=== PATIENT | male | born 1965 | race Caucasian/White ===

== ENCOUNTER 2021-02-15 10:57 | Inpatient (IN) | payer BC, SELFPAY ==
[2021-02-15] VITALS (24 sets, daily range): BP systolic 118–151; BP diastolic 84–98; PULSE 72–95; RESP 23–40; TEMP 36.4–37.4; O2SAT 85–97; BMI 41.8
--- NOTE | 2021-02-15 | ECHO_ITS ---
Patient Info Name: Henrique Meyers Age: 55 years : 1965 Gender: Male Ht: 69 in Wt: 270 lbs BSA: 2.50 m2 HR: 88 bpm BP: 133 / 93 mmHg Technical Quality: Good Exam Date: 02/15/2021 3:02 PM Exam Location: [facility] Patient Status: Inpatient Admit Date: 02/15/2021 Staff Ordering Physician: Aman Morelos MD Graduate Internship: Alfa Bray RDCS, RT Attending Provider: Alec Peña MD Exam Type: CA echo doppler color flow Study Info Indications I50.9 - Heart failure, unspecified Complete two-dimensional, color flow and Doppler transthoracic echocardiogram is performed. Strain analysis performed. Summary 1. Complete two-dimensional, color flow and Doppler transthoracic echocardiogram is performed. 2. Left ventricular chamber dimension is normal. 3. Left ventricular systolic function is normal, estimated at 60-65%. 4. There is mildly increased left ventricular wall thickness. 5. The left ventricular diastolic function is grade I diastolic dysfunction. 6. E/e' 6 is not elevated. 7. Global longitudinal strain is abnormal at -14.6%. 8. There is trace mitral valve regurgitation. Left Ventricle E/e' 6 is not elevated. Global longitudinal strain is abnormal at -14.6%. Left ventricular chamber dimension is normal. Left ventricular systolic function is normal, estimated at 60-65%. There is mildly increased left ventricular wall thickness. The left ventricular diastolic function is grade I diastolic dysfunction. Right Ventricle Right ventricular systolic function is normal with normal TAPSE 2.4 cm.. Right ventricular chamber dimension is normal. Left Atria Left atrial chamber dimension is normal. Right Atria Right atrial chamber dimension is normal. Aortic Valve The aortic valve is trileaflet. There is no aortic valve stenosis. There is no aortic valve regurgitation. Pulmonic Valve There is no pulmonic regurgitation. Mitral Valve There is no mitral valve stenosis. There is trace mitral valve regurgitation. Tricuspid Valve There is no tricuspid valve regurgitation. Pericardium/Pleural There is no pericardial effusion. Inferior Vena Cava Normal inferior vena cava with >50% collapse upon inspiration consistent with normal right atrial pressure, 5 mmHg. Aorta The aortic root size at the sinus of Valsalva is normal. Left Ventricular Outflow Tract Name Value Normal LVOT 2D LVOT Diameter 2.2 cm LVOT Doppler LVOT Peak Velocity 108 cm/s LVOT Peak Gradient 5 mmHg LVOT Mean Gradient 3 mmHg LVOT VTI 21 cm LVOT VTI/AV VTI Ratio 0.7 LVOT Stroke Volume 79 ml LVOT CO 6.4 l/min LVOT CI 2.6 l/min/m2 Pulmonic Valve Name Value Normal PV Doppler -------
--- NOTE | ~2021-02-15 | XR_ITS ---
EXAMINATION: XR chest 1V portable DATE: 02/20/2021 05:37 INDICATION: Respiratory failure TECHNIQUE: frontal view of the chest was obtained. COMPARISON: Chest radiograph dated 02/19/2021 FINDINGS: Slight increase in the patchy bilateral airspace opacities throughout both lungs relatively sparing t he apices. No pneumothorax or definitive pleural effusion. Heart size is normal. IMPRESSION: 1. Slight progression in diffuse patchy bilateral lung disease which could represent pneumonia and/or pulmonary edema. Reviewed, dictated and finalized at location A. IMPRESSION: 1. Slight progression in diffuse patchy bilateral lung disease which could repr esent pneumonia and/or pulmonary edema.
--- NOTE | ~2021-02-15 | XR_ITS ---
. EXAMINATION: XR chest 1V portable EXAM DATE: 02/17/2021 05:58 INDICATION: Resp Failure TECHNIQUE: Portable AP frontal chest x-ray was obtained. Comparison is made to prior examination from 02/15, 02/16/2021. FINDINGS: Diffuse bilateral pneumonia and/or edema, either stable or with mild progression. No pneumo thorax or pleural effusion. The cardiomediastinal silhouette is prominent but magnified on this AP te chnique. There are no osseous abnormalities identified. IMPRESSION: 1. Diffuse bilateral pneumonia or edema, stable or mild progression. Reviewed, dictated and finalized at location A.
--- NOTE | ~2021-02-15 | XR_ITS ---
EXAMINATION: XR chest 1V portable EXAM DATE: 02/16/2021 05:25 INDICATION: Respiratory failure. TECHNIQUE: Portable AP frontal chest x-ray was obtained. Comparison is made to prior examination from 02/15/2021. FINDINGS: There is diffuse groundglass density airspace disease, recommend considering possibility of COVID pneumonia given community prevalence and normal heart size. Edema or other infectious process also possible. No pneumothorax or pleural effusion. Cardiomediastinal silhouette is normal. There are no osseous abnormalities identified. Compared to yesterday, either stable or mild progression in the airspace disease. IMPRESSION: 1. Diffuse acute airspace disease, most likely infection. Reviewed, dictated and finalized at location A.
--- NOTE | ~2021-02-15 | XR_ITS ---
EXAMINATION: XR chest 1V portable EXAM DATE: 02/19/2021 05:49 INDICATION: Respiratory failure. TECHNIQUE: Portable AP frontal chest x-ray was obtained. Comparison is made to prior examination from 02/17/2021, 02/18. FINDINGS: Diffuse bilateral pneumonia and/or edema. No pneumothorax or pleural effusion. Cardiomedias tinal silhouette is normal. There are no osseous abnormalities identified. Accounting for differences in technique, there is no significant interval . IMPRESSION: Diffuse bilateral pneumonia or edema. Reviewed, dictated and finalized at location A.
--- NOTE | ~2021-02-15 | XR_ITS ---
EXAMINATION: XR chest 1V portable EXAM DATE: 02/15/2021 11:36 INDICATION: Shortness of breath. Symptoms 2 days. TECHNIQUE: Portable AP frontal chest x-ray was obtained. There is no prior study for comparison. FINDINGS: There is diffuse groundglass density airspace disease, recommend considering possibility of COVID pneumonia given community prevalence. No pneumothorax or pleural effusion. Cardiomediastinal s ilhouette is normal. There are no osseous abnormalities identified. IMPRESSION: 1. Diffuse acute airspace disease, most likely infection. Consider COVID. Reviewed, dictated and finalized at location A.
--- NOTE | ~2021-02-15 | XR_ITS ---
XR chest 1V portable DATE: 02/24/2021 05:37 INDICATION: Shortness of breath. Pneumonia. TECHNIQUE: Portable AP chest on 02/24/2021 at 0534 hours COMPARISON: 02/20/2021 portable AP chest at 0521 hours FINDINGS: There are extensive patchy consolidating infiltrates scattered throughout most of both lung conteh, with little interval change since 02/20/2021. Normal heart size. No pneumothorax. IMPRESSION: Persistent severe bilateral patchy consolidating infiltrates, with little interval change since 02/20/2021 Reviewed, dictated and finalized at location A.
--- NOTE | ~2021-02-15 | XR_ITS ---
EXAMINATION: XR chest 1V portable EXAM DATE: 02/18/2021 05:25 INDICATION: Respiratory failure. TECHNIQUE: Portable AP frontal chest x-ray was obtained. Comparison is made to prior examination from 02/17/2021. FINDINGS: Diffuse bilateral pneumonia and/or edema. No pneumothorax or pleural effusion. Cardiomedias tinal silhouette is normal. There are no osseous abnormalities identified. Accounting for differences in technique, there is no significant interval change in airspace disease compared to yesterday. IMPRESSION: Diffuse bilateral pneumonia or edema. Reviewed, dictated and finalized at location A.
--- NOTE | 2021-02-15 11:12 | ECG_ITS ---
Measurements Intervals [place] Rate: 96 P: 9 DC: 145 QRS: -34 QRSD: 102 T: -4 QT: 375 QTc: 474 Interpretive Statements SINUS RHYTHM LEFT AXIS DEVIATION VOLTAGE CRITERIA FOR LVH POOR R WAVE PROGRESSION, ANTERIOR LEADS MINIMAL Q WAVES- HIGH LATERAL LEADS BORDERLINE T WAVE ABNORMALITY- ANT/INF LEADS BASELINE ARTIFACT- II, III, AVR, AVF, V3-V6 BORDERLINE ECG Electronically Signed On 02-15-2021 11:20:39 CDT by Elfego Hays D.O.
[2021-02-15 11:18] LABS: Alveolar/Arterial O2 Gradient 635.3 mmHg; Base Excess ABG -3.7 mEq/l (+/-2.0); Fractional Inspired Oxygen 100 %; HCO3 ABG 18.6 mEq/l (22.0-26.0); Oxygen Saturation ABG 87.6 % (95.0-100.0); Oxyhemoglobin 84.2 % THb (90.0-100.0); PCO2 ABG 27.7 mmHg (35.0-45.0); Total Hemoglobin 16.1 g/dL (12.0-18.0); pH ABG 7.446 (7.350-7.450)
[2021-02-15 11:19] LABS: Device NON-REBREATHER MASK; Modified Allen's Test Pass; Site Drawn RIGHT RADIAL
[2021-02-15 11:25] LABS: Basophils Absolute Auto 0.1 K/mm3 (0.0-0.1); Basophils Percent Auto 0.7 % (0.2-1.2); Eosinophils Percent Auto 0.3 % (0-4.4); Hematocrit 47.5 % (42.0-52.0); Hemoglobin 16.1 g/dL (14.0-18.0); Immature Granulocyte Absolute 0.25 K/mm3 (0.00-0.031); Immature Granulocyte Percent A 2.5 % (0-0.5); Lymphocytes Absolute Auto 1.37 K/mm3 (0.9-3.2); Lymphocytes Percent Auto 13.5 % (18.3-44.2); Mean Corpuscular HGB Conc 33.9 g/dl (32-36); Mean Corpuscular Volume 85.4 fl (80-100); Mean Platelet Volume 9.7 fl (7.4-10.4); Monocytes Absolute Auto 1.4 K/mm3 (0.1-0.6); Monocytes Percent Auto 14.1 % (2.6-8.5); Neutrophils Percent Auto 68.9 % (45.5-73.1); Nucleated Red Blood Cells Perc 0.2 % (0.0-0.2); Platelet Count Result 245 k/mm3 (150-375); Red Blood Count 5.56 M/mm3 (4.6-6.20); Red Cell Distribution Width 13.6 % (11.5-14.5); White Blood Count 10.2 K/mm3 (4.5-10.0)
--- NOTE | 2021-02-15 11:39 | ED.SOB ---
HPI - SOB/Dyspnea General Chief Complaint: Shortness of Breath/Dyspnea Stated Complaint: diff breathing Time Seen by Provider: 02/15/21 11:16 History of Present Illness HPI Narrative: Patient is a 55-year-old male who presents ER with shortness of breath. Was diagnosed with COVID-19 on 02/08/2021 but initially became symptomatic on 02/06/2021. Reports progressive shortness of breath and weakness since diagnosis. Continues to have fevers and chills. Reports mild nonproductive cough. No alleviating factors. Has not been on medications. Does endorse some mild chest pressure associated with his shortness of breath. Related Data Home Medications Medication Instructions Recorded Confirmed cetirizine-pseudoephedrine 1 tablet PO Q12H PRN 02/15/21 02/15/21 [Zyrtec-D] Allergies Allergy/AdvReac Type Severity Reaction Status Date / Time No Known Allergies Allergy Unknown Unverified 03/27/14 09:42 Review of Systems Review of Systems: All systems reviewed & are unremarkable except as noted in HPI and below Constitutional: Constitutional: Reports chills, Reports fatigue and Reports fever(s) ENT: Denies nasal congestion and Denies sore throat Cardiovascular: Cardiovascular: Reports chest pain, Denies rapid heart rate and Denies radiating jaw, neck or arm pain Respiratory: Respiratory: Reports cough, Reports dyspnea and Denies wheezing Gastrointestinal: Gastrointestinal: Denies abdominal pain, Denies nausea and Denies vomiting PMFSH Past Medical History Medical History Healthy adult male Surgical History Surgical History History of right knee surgery Family History Family History Other Carcinoma of colon Diabetes mellitus Family history of Alzheimer's disease Family history of arthritis Family history of coronary artery disease Family history of malignant neoplasm Hypertension Social History Social History Smoking status: Never smoker Alcohol intake: current Substance use: never Gender identity (if verbalized by the patient): Male Spiritual care concerns: No Exam Narrative: Exam Narrative: GENERAL: Well-appearing, well-nourished, and in no acute distress. HEAD: Normocephalic, atraumatic. ENT: Mucous membranes moist. CHEST: Clear to auscultation. Elevated respiratory rate on BiPAP. HEART: Regular rate and rhythm. Normal peripheral pulses. ABDOMEN: Soft, nontender, nondistended. EXTREMITIES: Normal range of motion. No edema. SKIN: Warm, dry, no rash. NEURO: Alert and oriented x3. Course Course Emergency Course: Patient is certainly quite ill given his profound hypoxia and necessity for BiPAP. After talking to hospitalist and amusement park worker patient be placed in the ICU. He will be started remdesivir as well as Decadron. Troponin elevated will be trended. Patient only reported tightness not having active chest pain here. Vital Signs Vital signs: Vital Signs Temperature 97.6 F 02/15/21 11:05 Pulse Rate 95 02/15/21 11:05 Respiratory Rate 39 H 02/15/21 11:05 Blood Pressure 149/98 H 02/15/21 11:05 Pulse Oximetry 86 L 02/15/21 11:05 Temperature 98.1 F 02/15/21 20:00 Pulse Rate 84 02/15/21 20:19 Respiratory Rate 33 H 02/15/21 20:10 Blood Pressure 151/95 H 02/15/21 20:00 Pulse Oximetry 94 02/15/21 20:10 MDM - SOB/Dyspnea Lab Data Result diagrams: 02/15/21 11:14 02/15/21 11:14 Labs: Lab Results 02/15/21 02/15/21 02/15/21 Range/Units 11:14 11:14 11:14 WBC 10.2 H (4.5-10.0) K/mm3 RBC 5.56 (4.6-6.20) M/mm3 Hgb 16.1 (14.0-18.0) g/dL Hct 47.5 (42.0-52.0) % MCV 85.4 (80-100) fl MCH 29.0 (26-34) pg MCHC 33.9 (32-36) g/dl RDW 13.6 (11.5-14.5) % Plt Count 245 (150-375) k/mm3 MPV
[2021-02-15 11:52] LABS: Anion Gap 12 mmol/L (8-16); Blood Urea Nitrogen 24 mg/dL (9-20); Calcium 8.1 mg/dL (8.4-10.2); Carbon Dioxide 24 mmol/L (22-30); Chloride 91 mmol/L (98-107); Estimated CRCL calculation 94 ml/min; Estimated Glomerular Filt Rate > 60; Glucose 149 mg/dL (75-110); Potassium 4.2 mmol/L (3.4-5.0); Sodium 127 mmol/L (137-145)
[2021-02-15] MEDS: DEXAMETHASONE SOD PHOS INJ 4 MG/ML VIAL 6 MG IV PUSH (11:53)
[2021-02-15 12:00] LABS: Lactic Acid Reflex 4.6 mmol/L (0.7-2.1)
[2021-02-15 12:20] LABS: Troponin I 0.038 ng/mL (0.000-0.034)
[2021-02-15 12:57] LABS: Alanine Aminotransferase 74 U/L (4-50)
--- NOTE | 2021-02-15 13:04 | WPDCNINT ---
Assessment and Plan Assessment and plan (1) Acute respiratory failure due to COVID-19: Code(s): U07.1 - COVID-19; J96.00 - Acute respiratory failure, unspecified whether with hypoxia or hypercapnia Status: Acute Assessment and Plan: Acute respiratory failure secondary to COVID-19 pneumonia. Rule out bacterial SARS-CoV-2 PCR positive almost 1 week ago. Patient now admitted with pneumonia respiratory failure. Chest x-ray shows Diffuse acute airspace disease, most likely infection. Consider COVID. Patient is in Airborne, Droplet and Contact Isolation Continue dexamethasone, remdesivir Currently on BiPAP at 80% FiO2. May need intubation Cautious IVF Empiric Rocephin and doxycycline antibiotics for empiric bacterial coverage Check and follow inflammatory periodically Check D-dimer level to guide dosage of DVT prophylaxis (2) Sepsis: Code(s): A41.9 - Sepsis, unspecified organism Status: Acute Assessment and Plan: Lactic acidosis likely secondary to sepsis versus hypoxia 30 ml/kg IV fluid bolus but will have to be cautious with IV fluids Empiric antibiotics as above Monitor lactic acid level Blood cultures (3) Elevated troponin: Code(s): R77.8 - Other specified abnormalities of plasma proteins Status: Acute Assessment and Plan: Minimally elevated troponin likely secondary to respiratory failure and distress EKG shows T-wave abnormality but no ST elevation Monitor Serial troponin Add aspirin Low-dose Beta-mika if blood pressure allows Check echocardiogram and BNP DVT prophylaxis -Lovenox subcu Stress ulcer prophylaxis -PPI Nutrition -NPO for now Code Status -I spoke to patient in detail and he requests to be full code Full Code. He is not has 2 children but they do not live in this area and are not close to him. He requested to contact his sister if he is unable to make his decisions for himself. Total Critical Care Time - 35 minutes Due to a high probability of clinically significant, life threatening deterioration, the patient required my highest level of preparedness to intervene emergently and I personally spent this critical care time directly and personally managing the patient. This critical care time included obtaining a history; examining the patient; pulse oximetry; ordering and review of studies; arranging urgent treatment with development of a management plan; evaluation of patient's response to treatment; frequent reassessment; and discussions with other providers. It was exclusive of separately billable procedures and treating other patients and teaching time. Please see Assessment and Plan section and the rest of the note for further information on patient assessment and treatment Church Worker Consult Note Consult date: 02/15/21 Time Seen: 12:30 HPI: Henrique Meyers is a 55 year old male with no significant past medical history who presented to ER with chief complaint of shortness of breath. He was diagnosed with COVID-19 on 02/08/2021 but initially became symptomatic on 02/06/2021. Patient reports that he felt that he had a sinus infection with nasal congestion and sore throat. He got himself tested on Monday and was found to be positive. He was told to quadrant in at home he lives by himself. Since then patient has been getting progressively more shortness of breath and weak since diagnosis. He also had fevers, body ache, rigors and chills. He felt weak and tired. He also continued to have cough which was mostly nonproductive. Symptoms continued to get worse until he presented to ER. He denies any change in sensation of taste or smell but he did report poor appetite and poor p.o. intake over last few days. He also reported diarrhea without any blood associated with that. No abdominal pain nausea or vomiting On arrival to ER patient was noticed to be severely hypoxic. He was placed on BiPAP with improvement in his respiratory distress. Reported to me
[2021-02-15 13:53] LABS: NT Pro B Type Natriuretic Pept 544 PG/ML (5-100)
--- NOTE | 2021-02-15 13:54 | ADMGEN ---
This patient, Henrique Meyers, was admitted to Intensive Care Unit-2. Patient/family oriented to hospital policies and general routines including ID bracelet, bed and alarms, visiting hours, pain management, procedures, bathroom and other care routines, personal items, smoking policy, room service/diet, and visiting hours. Information on how to activate the Rapid Response Team has been discussed. Patient/Family are encouraged to report perceived risks to care and to ask questions if they do not understand what they are told or what they should do.
[2021-02-15] MEDS: REMDESIVIR 200 MG/NS 250 ML 200 MG/250 ML BAG 250 MG IVPB (14:14)
[2021-02-15 14:23] LABS: Reflex Lactic Acid Yes or No Add Lactic
--- NOTE | 2021-02-15 14:53 | PM.IMHP ---
H&P: HPI History of Present Illness Date/Time: 02/15/21 14:53 Chief Complaint: Worsening shortness of breath Narrative: This is a 55-year-old male with no significant past medical history, obesity. Most of the history I have obtained from medical record this patient is currently on BiPAP therapy. He felt dry upper airway cold symptoms nasal congestion at the beginning of February he presented to outpatient office where he was tested for COVID 19, patient tested positive for it it has been roughly over a week and he has come to the emergency room due to worsening shortness of breath, fevers, chills, fatigue poor appetite he was found to have a low oxygen saturation and to be in respiratory distress requiring BiPAP. Preliminary workup was significant for a chest x-ray that shows diffuse infiltrates, mild elevation of lactic acidosis and mild elevation of troponin. Prior to this he has been in his usual state of health. [facility] Past Medical History Medical History Healthy adult male Surgical History Surgical History History of right knee surgery Family History Family History Other Carcinoma of colon Diabetes mellitus Family history of Alzheimer's disease Family history of arthritis Family history of coronary artery disease Family history of malignant neoplasm Hypertension Social History Social History Smoking status: Never smoker Alcohol intake: current Meds Home Medications and Allergies Home Medications Medication Instructions Recorded Confirmed Type cetirizine-pseudoephedrine 1 tablet PO Q12H PRN 02/15/21 02/15/21 History [Zyrtec-D] Allergies Allergy/AdvReac Type Severity Reaction Status Date / Time No Known Allergies Allergy Unknown Unverified 03/27/14 09:42 Vital Signs Vital Signs - 24 hr 02/15/21 11:05 02/15/21 11:07 02/15/21 11:15 Temperature 97.6 F Pulse Rate 95 90 Respiratory Rate 39 H Blood Pressure 149/98 H Pulse Oximetry 86 L 85 L 02/15/21 11:20 02/15/21 11:34 02/15/21 11:55 Temperature Pulse Rate 92 93 Respiratory Rate 27 H 34 H Blood Pressure Pulse Oximetry 97 96 96 02/15/21 12:00 02/15/21 12:01 02/15/21 12:15 Temperature Pulse Rate 92 91 91 Respiratory Rate 40 H 39 H 36 H Blood Pressure 118/89 Pulse Oximetry 96 95 95 02/15/21 12:16 02/15/21 12:30 02/15/21 12:31 Temperature Pulse Rate 90 91 93 Respiratory Rate 37 H 35 H 31 H Blood Pressure 127/87 129/89 Pulse Oximetry 95 95 94 02/15/21 12:45 02/15/21 12:46 02/15/21 13:40 Temperature Pulse Rate 92 90 Respiratory Rate 36 H 32 H 24 H Blood Pressure 133/93 H Pulse Oximetry 94 92 Exam Narrative: Exam Narrative: Patient is laying in bed BiPAP is on Const: General: comfortable, no acute distress, well developed, alert, awake and ill appearing Nutritional Appearance: overweight Orientation/consciousness: patient oriented x3 HENMT: Head: normal to inspection, normocephalic and atraumatic Ears: hearing grossly normal bilaterally Face and sinus: normal facial exam Eyes: General: appearance normal, both eyes and all related structures Pupils: Equal, round and reactive pupils present EOM: EOMs intact bilaterally Neck: Neck: full ROM, no lymphadenopathy and no JVD Thyroid: thyroid normal Lymphatic: no lymphadenopathy noted Resp: Effort & Inspection: other (On BiPAP support) Auscultation: diminished lung sounds Cardio: Jugular venous distension: no JVD Rate: regular rate Rhythm: regular rhythm Heart sounds: S1 normal heart sound present and S2 normal heart sound present GI: Inspection: Pannus present and obesity GI Palp: Yes Soft to palpation and Yes No hepatosplenomegaly present : General: Yes deferred Skin: Rashes: no rashes Wounds: no wounds N
[2021-02-15] MEDS: ASPIRIN 300 MG SUPPOSITORY RECTAL (15:48)
[2021-02-15 16:05] LABS: Lactic Acid 1.5 mmol/L (0.7-2.1)
[2021-02-15 16:12] LABS: Glucose Point of Care 134 (65-105)
[2021-02-15 16:29] LABS: Troponin I 0.254 ng/mL (0.000-0.034)
[2021-02-15 16:45] LABS: D Dimer > 20.00 ug/mL (<0.48)
[2021-02-15] MEDS: ENOXAPARIN 100 MG/ML SYRINGE SUB-Q (17:22)
[2021-02-15] MEDS: ENOXAPARIN 30 MG/0.3 ML SYRINGE SUB-Q (17:23)
[2021-02-15 18:51] LABS: Glucose Point of Care 134 (65-105)
[2021-02-15 20:06] LABS: Lactic Acid Reflex 1.5 mmol/L (0.7-2.1)
[2021-02-15] MEDS: METOPROLOL TARTRATE 12.5 MG TABLET PO (20:19)
[2021-02-15 20:23] LABS: Troponin I 0.272 ng/mL (0.000-0.034)
[2021-02-15 23:31] LABS: Glucose Point of Care 123 (65-105)
[2021-02-16] VITALS (26 sets, daily range): BP systolic 124–152; BP diastolic 83–99; PULSE 66–75; RESP 17–27; TEMP 36.2–36.8; O2SAT 89–96
[2021-02-16] MEDS: ENOXAPARIN 30 MG/0.3 ML SYRINGE SUB-Q ×2 (05:06→16:51)
[2021-02-16] MEDS: ENOXAPARIN 100 MG/ML SYRINGE SUB-Q ×2 (05:06→16:52)
[2021-02-16 05:26] LABS: Hematocrit 40.6 % (42.0-52.0); Hemoglobin 13.8 g/dL (14.0-18.0); Mean Corpuscular Hemoglobin 28.9 pg (26-34); Mean Corpuscular Volume 84.9 fl (80-100); Mean Platelet Volume 9.8 fl (7.4-10.4); Platelet Count Result 230 k/mm3 (150-375); Red Blood Count 4.78 M/mm3 (4.6-6.20); Red Cell Distribution Width 13.5 % (11.5-14.5); White Blood Count 7.5 K/mm3 (4.5-10.0)
[2021-02-16 05:47] LABS: Alanine Aminotransferase 66 U/L (4-50); Albumin Level 2.9 g/dL (3.5-5.1); Alkaline Phosphatase 64 U/L (38-126); Anion Gap 4 mmol/L (8-16); Aspartate Amino Transferase 73 U/L (17-59); Bilirubin,Total 0.6 mg/dL (0.2-1.3); Blood Urea Nitrogen 23 mg/dL (9-20); Calcium 7.3 mg/dL (8.4-10.2); Carbon Dioxide 27 mmol/L (22-30); Chloride 101 mmol/L (98-107); Estimated CRCL calculation 105 ml/min; Estimated Glomerular Filt Rate > 60; Glucose 125 mg/dL (75-110); Magnesium 2.7 mg/dL (1.6-2.3); Sodium 132 mmol/L (137-145)
[2021-02-16 05:59] LABS: CRP 15.6 mg/dL (<1.0)
[2021-02-16 06:09] LABS: Lactate Dehydrogenase 2025 U/L (313-618)
--- NOTE | 2021-02-16 07:27 | WPDINTPN ---
Progress Note: A&P Assessment and Plan (1) Acute respiratory failure due to COVID-19: Code(s): U07.1 - COVID-19; J96.00 - Acute respiratory failure, unspecified whether with hypoxia or hypercapnia Status: Acute Assessment and Plan: Acute respiratory failure secondary to COVID-19 pneumonia. Rule out bacterial SARS-CoV-2 PCR positive almost 1 week ago. Patient now admitted with pneumonia respiratory failure. Chest x-ray shows Diffuse acute airspace disease, most likely infection. Patient is in Airborne, Droplet and Contact Isolation Continue dexamethasone, remdesivir Currently on BiPAP at 60% FiO2. Will try patient on Airvo. Discussed with patient, if his condition worsens, he agrees with intubation and mechanical ventilation Cautious IVF Empiric Rocephin and doxycycline antibiotics for empiric bacterial coverage Inflammatory markers are elevated, continue trend periodically D-dimer significantly elevated, patient started on therapeutic Lovenox, trend D-dimer (2) Sepsis: Code(s): A41.9 - Sepsis, unspecified organism Status: Acute Assessment and Plan: Lactic acidosis likely secondary to sepsis versus hypoxia 30 ml/kg IV fluid bolus but will have to be cautious with IV fluids Empiric antibiotics as above Lactic acid normalized Blood cultures pending (3) Elevated troponin: Code(s): R77.8 - Other specified abnormalities of plasma proteins Status: Acute Assessment and Plan: Minimally elevated troponin likely secondary to respiratory failure and distress EKG shows T-wave abnormality but no ST elevation Troponins elevated but plateaued, could be related to respiratory distress and hypoxia, type 2 infarct Continue aspirin low-dose beta-mika -BNP was 544 Echocardiogram 02/15/2021: Normal LV dimension, LVSF is normal, EF 60-65%. Grade 1 diastolic dysfunction Additional Plan DVT prophylaxis -Lovenox subcu Stress ulcer prophylaxis -PPI Nutrition -NPO for now Code Status -patient requests to be full code Full Code. He is not has 2 children but they do not live in this area and are not close to him. He requested to contact his sister if he is unable to make his decisions for himself. Total Critical Care Time - 34 minutes Due to a high probability of clinically significant, life threatening deterioration, the patient required my highest level of preparedness to intervene emergently and I personally spent this critical care time directly and personally managing the patient. This critical care time included obtaining a history; examining the patient; pulse oximetry; ordering and review of studies; arranging urgent treatment with development of a management plan; evaluation of patient's response to treatment; frequent reassessment; and discussions with other providers. It was exclusive of separately billable procedures and treating other patients and teaching time. Please see Assessment and Plan section and the rest of the note for further information on patient assessment and treatment Subjective Date/time seen: 02/16/21 07:27 Interval history: Reason for consult COVID-19 19 pneumonia, acute respiratory failure requiring BiPAP, elevated lactic acid which has resolved after IV fluids, hypoxia 02/16/2021: Patient seen and examined in the ICU this morning, remains on BiPAP 14/8, 60% FiO2. Patient is hemodynamically stable, urine output has been adequate. Lactic acid has normalized. Inflammatory markers are elevated, patient on full-dose Lovenox. Patient denies any shortness of breath at this time, denies any chest pain, abdominal pain, nausea vomiting. States he feels better Review of Systems Review of Systems: All systems reviewed & are unremarkable except as noted in HPI and below (HPI) Exam Narrative: Exam Narrative: General: Pt is alert awake and on BiPAP Lungs/Chest: Trachea central course BS B/L, bibasilar crackles, no wheezing, mild tachypnea but no respiratory
[2021-02-16] MEDS: DEXAMETHASONE SOD PHOS INJ 4 MG/ML VIAL 6 MG IV PUSH (08:03)
[2021-02-16] MEDS: ASPIRIN 325 MG TABLET PO (08:03)
[2021-02-16] MEDS: METOPROLOL TARTRATE 12.5 MG TABLET PO ×2 (08:03→20:37)
[2021-02-16] MEDS: PANTOPRAZOLE SODIUM IV 40 MG VIAL IV PUSH (09:28)
--- NOTE | 2021-02-16 09:31 | PM.CNCAR ---
Assessment and Plan Assessment and plan (1) Type 2 myocardial infarction: Code(s): I21.A1 - Myocardial infarction type 2 Status: Acute Assessment and Plan: 55-year-old male with no known prior cardiac history. Patient admitted to the hospital with COVID-19 pneumonia. Troponins are minimally elevated in the setting of COVID-19 infection and hypoxemia, likely type 2 [place]. Echocardiogram shows preserved LV systolic function. Continue current medical treatment and supportive care. No further cardiac testing is anticipated at this time unless otherwise indicated based on patient's clinical course. Continue to monitor on telemetry for any arrhythmias. Will follow on p.r.n. basis. (2) Pneumonia due to 2019-nCoV: Code(s): U07.1 - COVID-19; J12.82 - Pneumonia due to coronavirus disease 2019 Status: Acute Assessment and Plan: Management as per primary/ICU team (3) Acute respiratory failure due to COVID-19: Code(s): U07.1 - COVID-19; J96.00 - Acute respiratory failure, unspecified whether with hypoxia or hypercapnia Status: Acute Assessment and Plan: Management as per primary/ICU team History of Present Illness History of Present Illness Consult date/time: 02/16/21 09:31 Date of consult: 02/16/2021 Reason for consult: Requesting physician: HPI: 55-year-old male with no known prior cardiac history. Patient [facility] on 02/15/2021 with complaints of shortness of breath. He denies chest pain, palpitation, dizziness or syncope. No known prior cardiac history. He was apparently diagnosed with COVID-19 on 02/08/2021. Patient was found to be severely hypoxemic. Chest x-ray showed diffuse acute airspace disease consistent with COVID-19 pneumonia. He was initially on BiPAP, and is currently on high-flow oxygen. Patient has received steroids, remdesivir. Cardiology was consulted for mild troponin elevation. EKG on my personal evaluation showed sinus rhythm, leftward axis, poor R-wave progression. Troponins are minimally elevated with peak troponin level of 0.27. Echocardiogram showed preserved LV systolic function, EF 60-65%, grade 1 diastolic dysfunction dysfunction. Reason For Visit: covid pneumonia/hypoxia/hyponatremia Review of Systems Review of Systems: Narrative: General: Positive for fatigue Psychological: Negative for anxiety, depression Ophthalmic: negative for loss of vision ENT: Negative for epistaxis, headaches Allergy and immunology: Negative for hives, nasal congestion Hematologic and lymphatic: Negative for overt bleeding problems Endocrine: Negative for hot flashes, palpitations Respiratory: Positive for shortness of breath Cardiovascular: Negative for chest pain Gastrointestinal: Negative for abdominal pain Musculoskeletal: Negative for myalgia, joint pains Neurological: Negative for weakness Dermatological: Negative for rash, skin discoloration PMFSH Past Medical History Medical History Healthy adult male Surgical History Surgical History History of right knee surgery Family History Family History Other Carcinoma of colon Diabetes mellitus Family history of Alzheimer's disease Family history of arthritis Family history of coronary artery disease Family history of malignant neoplasm Hypertension Social History Social History Smoking status: Never smoker Alcohol intake: current Substance use: never Gender identity (if verbalized by the patient): Male Spiritual care concerns: No Meds Home Medications and Allergies Home Medications Medication Instructions Recorded Confirmed Type cetirizine-pseudoephedrine 1 tablet PO Q12H PRN 02/15/21 02/15/21 History [Zyrtec-D] Allergies Allergy/AdvRea
[2021-02-16] MEDS: BUDESONIDE RESPULE NEB 0.5 MG/2 ML AMP INHALATION ×2 (10:09→20:53)
[2021-02-16] MEDS: REMDESIVIR 100 MG/NS 250 ML 100 MG/250 ML BAG 250 MG IVPB (11:51)
[2021-02-16 12:03] LABS: Glucose Point of Care 145 (65-105)
--- NOTE | 2021-02-16 14:14 | PM.IMPN ---
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 Continue breathing treatments (2) Pneumonia due to 2019-nCoV: Code(s): U07.1 - COVID-19; J12.82 - Pneumonia due to coronavirus disease 2019 Status: Acute Assessment and Plan: On Rocephin and doxycycline Remdesivir and dexamethasone (3) Sepsis: Code(s): A41.9 - Sepsis, unspecified organism Status: Acute Assessment and Plan: Likely secondary to pneumonia Early goal-directed therapy ongoing (4) Type 2 myocardial infarction: Code(s): I21.A1 - Myocardial infarction type 2 Status: Acute Assessment and Plan: Appreciate cardiology note Supportive care Medical management Subjective Date/time seen: 14:14 I feel much better Review of Systems Review of Systems: Narrative: Patient had been diagnosed with COVID-19 presented to the emergency room due to shortness of breath he was found to be severely hypoxic placed on BiPAP and admitted to intensive care unit Constitutional: Comments: No rigors no chills no fevers Cardiovascular: Comments: No chest pain no PND no orthopnea Respiratory: Comments: Shortness of breath Gastrointestinal: Comments: No nausea no vomiting no diarrhea no constipation no abdominal pain Musculoskeletal: Comments: Muscle aches Integumentary/Breasts: Comments: No rashes Neurologic: Comments: No sensorimotor deficit Exam Narrative: Exam Narrative: Patient is sitting in bed high-flow nasal/Airvo on saturating at 92% on 50% FiO2 Const: General: comfortable, no acute distress, well developed, alert and awake Nutritional Appearance: average body habitus Orientation/consciousness: patient oriented x3 HENMT: Head: normal to inspection, normocephalic and atraumatic Ears: hearing grossly normal bilaterally Face and sinus: normal facial exam Eyes: General: appearance normal, both eyes and all related structures Pupils: Equal, round and reactive pupils present EOM: EOMs intact bilaterally Neck: Neck: full ROM, no lymphadenopathy and no JVD Thyroid: thyroid normal Lymphatic: no lymphadenopathy noted Resp: Effort & Inspection: normal respiratory effort and able to speak in complete sentences Auscultation: diminished lung sounds Cardio: Jugular venous distension: no JVD Rate: regular rate Rhythm: regular rhythm Heart sounds: S1 normal heart sound present and S2 normal heart sound present GI: GI Palp: Yes Soft to palpation and Yes No hepatosplenomegaly present : General: Yes deferred Skin: Rashes: no rashes Wounds: no wounds Neuro: General: patient oriented x3 and CN's II-XI intact bilaterally Cranial nerves: Yes CN's II-XII intact bilaterally and Yes Equal, round and reactive pupils present Cognition (Neuro): normal cognition Speech: normal speech Gait exam (Neuro): Normal gait present Motor exam (neuro): 5/5 motor strength present throughout Extrem: General: normal to inspection, full ROM, no joint enlargement and no pedal edema Objective Data Vital Signs Vital Signs: Vital Signs - 24 hr 02/15/21 16:00 02/15/21 16:26 02/15/21 18:00 Temperature Pulse Rate 87 94 87 Respiratory Rate 38 H 35 H 29 H Blood Pressure 145/95 H 146/98 H Pulse Oximetry 94 96 92 02/15/21 20:00 02/15/21 20:10 02/15/21 20:19 Temperature 98.1 F Pulse Rate 89 84 84 Respiratory Rate 33 H 33 H Blood Pressure 151/95 H Pulse Oximetry 94 94 02/15/21 22:00 02/15/21 23:57 02/16/21 00:00 Temperature 98.2 F Pulse Rate 73 72 71 Respiratory Rate 23 H 24 H 27 H Blood Pressure 131/84 129/89 Pulse Oximetry 97 95 94 02/16/21 02:00 02/16/21 04:00 02/16/21 04:43 Temperature Puls
[2021-02-16] MEDS: ALBUTEROL SULFATE NEB 2.5 MG/0.5 ML INH INHALATION ×2 (15:17→20:53)
[2021-02-16] MEDS: IPRATROPIUM BR 0.02% INH SOLN 0.5 MG/2.5 ML VIAL INHALATION ×2 (15:17→20:53)
[2021-02-16 16:49] LABS: Glucose Point of Care 147 (65-105)
[2021-02-17] VITALS (26 sets, daily range): BP systolic 114–159; BP diastolic 78–99; PULSE 54–81; RESP 17–30; TEMP 36.1–37.2; O2SAT 89–100
[2021-02-17] MEDS: IPRATROPIUM BR 0.02% INH SOLN 0.5 MG/2.5 ML VIAL INHALATION ×4 (02:14→20:09)
[2021-02-17] MEDS: ALBUTEROL SULFATE NEB 2.5 MG/0.5 ML INH INHALATION ×4 (02:15→20:08)
[2021-02-17] MEDS: ENOXAPARIN 30 MG/0.3 ML SYRINGE SUB-Q ×2 (04:28→18:05)
[2021-02-17] MEDS: ENOXAPARIN 100 MG/ML SYRINGE SUB-Q ×2 (04:28→18:05)
[2021-02-17 04:42] LABS: Hematocrit 41.1 % (42.0-52.0); Hemoglobin 13.8 g/dL (14.0-18.0); Mean Corpuscular HGB Conc 33.6 g/dl (32-36); Mean Corpuscular Hemoglobin 28.9 pg (26-34); Mean Platelet Volume 9.2 fl (7.4-10.4); Platelet Count Result 303 k/mm3 (150-375); Red Blood Count 4.78 M/mm3 (4.6-6.20); Red Cell Distribution Width 13.3 % (11.5-14.5); White Blood Count 11.8 K/mm3 (4.5-10.0)
[2021-02-17 04:57] LABS: Alanine Aminotransferase 73 U/L (4-50); Albumin Level 2.9 g/dL (3.5-5.1); Alkaline Phosphatase 58 U/L (38-126); Anion Gap 3 mmol/L (8-16); Aspartate Amino Transferase 73 U/L (17-59); Bilirubin,Total 0.5 mg/dL (0.2-1.3); Blood Urea Nitrogen 25 mg/dL (9-20); Calcium 7.2 mg/dL (8.4-10.2); Carbon Dioxide 30 mmol/L (22-30); Chloride 103 mmol/L (98-107); Estimated CRCL calculation 95 ml/min; Estimated Glomerular Filt Rate > 60; Glucose 110 mg/dL (75-110); Magnesium 2.8 mg/dL (1.6-2.3); Potassium 3.8 mmol/L (3.4-5.0); Sodium 136 mmol/L (137-145)
[2021-02-17 05:25] LABS: D Dimer 16.69 ug/mL (<0.48)
[2021-02-17] MEDS: DEXAMETHASONE SOD PHOS INJ 4 MG/ML VIAL 6 MG IV PUSH (07:46)
[2021-02-17] MEDS: METOPROLOL TARTRATE 12.5 MG TABLET PO ×2 (07:46→20:26)
[2021-02-17] MEDS: PANTOPRAZOLE SODIUM IV 40 MG VIAL IV PUSH (07:46)
[2021-02-17] MEDS: ASPIRIN 325 MG TABLET PO (07:46)
[2021-02-17 07:58] LABS: Glucose Point of Care 97 (65-105)
--- NOTE | 2021-02-17 08:05 | WPDINTPN ---
Progress Note: A&P Assessment and Plan (1) Acute respiratory failure due to COVID-19: Code(s): U07.1 - COVID-19; J96.00 - Acute respiratory failure, unspecified whether with hypoxia or hypercapnia Status: Acute Assessment and Plan: Acute respiratory failure secondary to COVID-19 pneumonia. Rule out bacterial SARS-CoV-2 PCR positive almost 1 week ago. Patient now admitted with pneumonia respiratory failure. Chest x-ray shows Diffuse acute airspace disease, most likely infection. Patient is in Airborne, Droplet and Contact Isolation Continue dexamethasone, remdesivir Currently on BiPAP at 60% FiO2. Was on AIRVO all day and placed back on BiPAP at night Discussed with patient, if his condition worsens, he agrees with intubation and mechanical ventilation Cautious IVF Empiric Rocephin and doxycycline antibiotics for empiric bacterial coverage Inflammatory markers are elevated, continue trend periodically D-dimer significantly elevated, patient started on therapeutic Lovenox, trend D-dimer (2) Sepsis: Code(s): A41.9 - Sepsis, unspecified organism Status: Acute Assessment and Plan: Lactic acidosis likely secondary to sepsis versus hypoxia 30 ml/kg IV fluid bolus but will have to be cautious with IV fluids Empiric antibiotics as above Lactic acid normalized Blood cultures pending (3) Elevated troponin: Code(s): R77.8 - Other specified abnormalities of plasma proteins Status: Acute Assessment and Plan: Minimally elevated troponin likely secondary to respiratory failure and distress EKG shows T-wave abnormality but no ST elevation Troponins elevated but plateaued, could be related to respiratory distress and hypoxia, type 2 infarct Continue aspirin low-dose beta-mika -BNP was 544 Echocardiogram 02/15/2021: Normal LV dimension, LVSF is normal, EF 60-65%. Grade 1 diastolic dysfunction Additional Plan DVT prophylaxis -Lovenox subcu Stress ulcer prophylaxis -PPI Nutrition -NPO for now Code Status -patient requests to be full code Full Code. He is not has 2 children but they do not live in this area and are not close to him. He requested to contact his sister if he is unable to make his decisions for himself. Total Critical Care Time - 32 minutes Due to a high probability of clinically significant, life threatening deterioration, the patient required my highest level of preparedness to intervene emergently and I personally spent this critical care time directly and personally managing the patient. This critical care time included obtaining a history; examining the patient; pulse oximetry; ordering and review of studies; arranging urgent treatment with development of a management plan; evaluation of patient's response to treatment; frequent reassessment; and discussions with other providers. It was exclusive of separately billable procedures and treating other patients and teaching time. Please see Assessment and Plan section and the rest of the note for further information on patient assessment and treatment Subjective Date/time seen: 02/17/21 08:05 Interval history: Reason for consult COVID-19 19 pneumonia, acute respiratory failure requiring BiPAP, elevated lactic acid which has resolved after IV fluids, hypoxia 02/17/2021: Remains on BiPAP 19/06, 60% FiO2. Patient is hemodynamically stable, urine output has been adequate. Denies SOB, chest pain, N/V. Was on Airvo all day yesterday and placed back on BiPAP overnight Review of Systems Review of Systems: All systems reviewed & are unremarkable except as noted in HPI and below (HPI) Exam Narrative: Exam Narrative: General: Pt is alert awake and on BiPAP Lungs/Chest: Trachea central course BS B/L, bibasilar crackles, no wheezing, mild tachypnea but no respiratory distress or use of accessory muscles at this time while on BiPAP Cardiac: RRR. Normal S1 S2. No murmurs Circulation: Pedal pulses are intact and symmetrical.
[2021-02-17] MEDS: BUDESONIDE RESPULE NEB 0.5 MG/2 ML AMP INHALATION ×2 (08:16→20:08)
[2021-02-17] MEDS: REMDESIVIR 100 MG/NS 250 ML 100 MG/250 ML BAG 250 MG IVPB (10:40)
[2021-02-17 12:26] LABS: Glucose Point of Care 184 (65-105)
--- NOTE | 2021-02-17 14:28 | PM.IMPN ---
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 (2) Pneumonia due to 2019-nCoV: Code(s): U07.1 - COVID-19; J12.82 - Pneumonia due to coronavirus disease 2019 Status: Acute Assessment and Plan: Patient also on Rocephin and doxycycline Remdesivir + Dexamethasone (3) Elevated troponin: Code(s): R77.8 - Other specified abnormalities of plasma proteins Status: Acute Assessment and Plan: Type 2 [place] Secondary to sepsis due to COVID pneumonia (4) Sepsis: Code(s): A41.9 - Sepsis, unspecified organism Status: Acute Assessment and Plan: Early goal-directed therapy on going (5) Type 2 myocardial infarction: Code(s): I21.A1 - Myocardial infarction type 2 Status: Acute Assessment and Plan: Supportive care Continues telemonitoring Subjective Date/time seen: 02/17/21 14:28 I feel better Review of Systems Review of Systems: Narrative: Patient presented to emergency room due to worsening shortness of breath after being diagnosed with COVID Constitutional: Comments: No fevers no rigors no chills Cardiovascular: Comments: No chest pain no PND no orthopnea no leg swelling Respiratory: Comments: Shortness of breath Gastrointestinal: Comments: No nausea no vomiting no diarrhea no constipation Musculoskeletal: Comments: No muscle pain or joint Integumentary/Breasts: Comments: No rashes Neurologic: Comments: No sensorimotor deficit Exam Narrative: Exam Narrative: Patient is sitting in chair on high-flow nasal cannula/Airvo Const: General: comfortable, no acute distress, well developed, alert, awake and ill appearing acutely Nutritional Appearance: average body habitus Orientation/consciousness: patient oriented x3 HENMT: Head: normal to inspection, normocephalic and atraumatic Ears: hearing grossly normal bilaterally Face and sinus: normal facial exam Eyes: General: appearance normal, both eyes and all related structures Pupils: Equal, round and reactive pupils present EOM: EOMs intact bilaterally Neck: Neck: full ROM, no lymphadenopathy and no JVD Thyroid: thyroid normal Lymphatic: no lymphadenopathy noted Resp: Effort & Inspection: normal respiratory effort and able to speak in complete sentences Auscultation: diminished lung sounds Cardio: Jugular venous distension: no JVD Rate: regular rate Rhythm: regular rhythm Heart sounds: S1 normal heart sound present and S2 normal heart sound present GI: GI Palp: Yes Soft to palpation and Yes No hepatosplenomegaly present : General: Yes deferred Skin: Rashes: no rashes Wounds: no wounds Neuro: General: patient oriented x3 and CN's II-XI intact bilaterally Cranial nerves: Yes CN's II-XII intact bilaterally and Yes Equal, round and reactive pupils present Cognition (Neuro): normal cognition Speech: normal speech Gait exam (Neuro): Normal gait present Motor exam (neuro): 5/5 motor strength present throughout Extrem: General: normal to inspection, full ROM, no joint enlargement and no pedal edema Objective Data Vital Signs Vital Signs: Vital Signs - 24 hr 02/16/21 15:18 02/16/21 15:25 02/16/21 16:00 Temperature 97.2 F L Pulse Rate 66 67 74 Respiratory Rate 20 20 22 H Blood Pressure 152/87 H Pulse Oximetry 93 89 L 02/16/21 18:00 02/16/21 20:00 02/16/21 20:37 Temperature 98.0 F Pulse Rate 73 70 75 Respiratory Rate 20 22 H Blood Pressure 144/96 H 150/99 H Pulse Oximetry 91 92 02/16/21 20:53 02/16/21 20:58 02/16/21 21:10 Temperature Pulse Rate 71 71 74 Respiratory Rate 21 H 21 H 20 Blood Pressure Pulse Oximetry 91 02/16/21 22:00 02/16/21 23:45 02/17/21 00:00 Temperat
[2021-02-17 17:08] LABS: Glucose Point of Care 106 (65-105)
[2021-02-18] VITALS (28 sets, daily range): BP systolic 114–165; BP diastolic 72–106; PULSE 55–95; RESP 17–73; TEMP 36.8–37.1; O2SAT 91–99
[2021-02-18] MEDS: IPRATROPIUM BR 0.02% INH SOLN 0.5 MG/2.5 ML VIAL INHALATION ×4 (01:07→19:51)
[2021-02-18] MEDS: ALBUTEROL SULFATE NEB 2.5 MG/0.5 ML INH INHALATION ×4 (01:07→19:51)
[2021-02-18] MEDS: hydrALAZINE HCL 20 MG/ML VIAL 10 MG IV PUSH (01:23)
[2021-02-18] MEDS: ENOXAPARIN 30 MG/0.3 ML SYRINGE SUB-Q ×2 (05:24→17:28)
[2021-02-18] MEDS: ENOXAPARIN 100 MG/ML SYRINGE SUB-Q ×2 (05:24→17:28)
[2021-02-18 05:51] LABS: Hematocrit 42.3 % (42.0-52.0); Hemoglobin 14.3 g/dL (14.0-18.0); Mean Corpuscular HGB Conc 33.8 g/dl (32-36); Mean Corpuscular Hemoglobin 29.2 pg (26-34); Mean Corpuscular Volume 86.3 fl (80-100); Mean Platelet Volume 9.3 fl (7.4-10.4); Platelet Count Result 375 k/mm3 (150-375); Red Cell Distribution Width 13.5 % (11.5-14.5); White Blood Count 13.1 K/mm3 (4.5-10.0)
[2021-02-18 05:59] LABS: Alanine Aminotransferase 121 U/L (4-50); Alkaline Phosphatase 55 U/L (38-126); Anion Gap 2 mmol/L (8-16); Aspartate Amino Transferase 92 U/L (17-59); Bilirubin,Total 0.6 mg/dL (0.2-1.3); Blood Urea Nitrogen 23 mg/dL (9-20); CRP 2.8 mg/dL (<1.0); Calcium 7.6 mg/dL (8.4-10.2); Carbon Dioxide 30 mmol/L (22-30); Chloride 106 mmol/L (98-107); Estimated CRCL calculation 118 ml/min; Estimated Glomerular Filt Rate > 60; Glucose 90 mg/dL (75-110); Lactate Dehydrogenase 1532 U/L (313-618); Magnesium 2.4 mg/dL (1.6-2.3); Potassium 3.9 mmol/L (3.4-5.0); Sodium 138 mmol/L (137-145)
--- NOTE | 2021-02-18 07:27 | WPDINTPN ---
Progress Note: A&P Assessment and Plan (1) Acute respiratory failure due to COVID-19: Code(s): U07.1 - COVID-19; J96.00 - Acute respiratory failure, unspecified whether with hypoxia or hypercapnia Status: Acute Assessment and Plan: Acute respiratory failure secondary to COVID-19 pneumonia. SARS-CoV-2 PCR positive 1 week prior to admission. Patient admitted with pneumonia respiratory failure. Chest x-ray shows Diffuse acute airspace disease, most likely infection. Patient is in Airborne, Droplet and Contact Isolation Continue dexamethasone (initiated 02/16), remdesivir (initiated 02/16) Currently on BiPAP at 60% FiO2. Continue Airvo during the day and placed back on BiPAP overnight. Up in chair again today Discussed with patient, if his condition worsens, he agrees with intubation and mechanical ventilation Empiric Rocephin and doxycycline antibiotics for empiric bacterial coverage, will continue for total of 5 days Inflammatory markers trending down D-dimer significantly elevated, patient started on therapeutic Lovenox, D-dimer trending down Continue vitamin-D, vitamin-C and zinc (2) Sepsis: Code(s): A41.9 - Sepsis, unspecified organism Status: Acute Assessment and Plan: Lactic acidosis likely secondary to sepsis versus hypoxia 30 ml/kg IV fluid bolus but will have to be cautious with IV fluids Empiric antibiotics as above Lactic acid normalized Blood cultures 02/16: No growth to date x2 bottles (3) Elevated troponin: Code(s): R77.8 - Other specified abnormalities of plasma proteins Status: Acute Assessment and Plan: Minimally elevated troponin likely secondary to respiratory failure and distress EKG shows T-wave abnormality but no ST elevation Troponins elevated but plateaued, could be related to respiratory distress and hypoxia, type 2 infarct Continue aspirin low-dose beta-mika -BNP was 544 Echocardiogram 02/15/2021: Normal LV dimension, LVSF is normal, EF 60-65%. Grade 1 diastolic dysfunction Additional Plan DVT prophylaxis -Lovenox subcu Stress ulcer prophylaxis -PPI Nutrition -NPO for now Code Status -patient requests to be full code Full Code. He is not has 2 children but they do not live in this area and are not close to him. He requested to contact his sister if he is unable to make his decisions for himself. Total Critical Care Time - 32 minutes Due to a high probability of clinically significant, life threatening deterioration, the patient required my highest level of preparedness to intervene emergently and I personally spent this critical care time directly and personally managing the patient. This critical care time included obtaining a history; examining the patient; pulse oximetry; ordering and review of studies; arranging urgent treatment with development of a management plan; evaluation of patient's response to treatment; frequent reassessment; and discussions with other providers. It was exclusive of separately billable procedures and treating other patients and teaching time. Please see Assessment and Plan section and the rest of the note for further information on patient assessment and treatment Subjective Date/time seen: 02/18/21 07:27 Interval history: Reason for consult COVID-19 19 pneumonia, acute respiratory failure requiring BiPAP, elevated lactic acid which has resolved after IV fluids, hypoxia 02/18/2021: Patient remains on BiPAP, 14/8, 60% FiO2. Hypertensive requiring p.r.n. hydralazine overnight. Urine output has been adequate, patient has been afebrile. Denies any respiratory distress, chest pain, nausea, vomiting. Mild cough which does not seem to bother him. Patient has been on Airvo all day yesterday and sitting up in chair with adequate O2 sats. Tolerating diet Review of Systems Review of Systems: All systems reviewed & are unremarkable except as noted in HPI and below (HPI) Exam Narrative: Exam Narrative: General:
[2021-02-18] MEDS: BUDESONIDE RESPULE NEB 0.5 MG/2 ML AMP INHALATION ×2 (07:32→19:51)
[2021-02-18] MEDS: METOPROLOL TARTRATE 25 MG TABLET PO ×2 (10:28→20:57)
[2021-02-18] MEDS: ASCORBIC ACID 500 MG TABLET PO (10:29)
[2021-02-18] MEDS: CHOLECALCIFEROL 1,000 UNITS TABLET 1000 UNITS PO (10:29)
[2021-02-18] MEDS: ZINC SULFATE 220 MG CAPSULE PO (10:29)
[2021-02-18] MEDS: DEXAMETHASONE SOD PHOS INJ 4 MG/ML VIAL 6 MG IV PUSH (10:30)
[2021-02-18] MEDS: PANTOPRAZOLE SODIUM IV 40 MG VIAL IV PUSH (10:30)
[2021-02-18] MEDS: REMDESIVIR 100 MG/NS 250 ML 100 MG/250 ML BAG 250 MG IVPB (10:31)
[2021-02-18] MEDS: ASPIRIN 325 MG TABLET PO (10:31)
[2021-02-18 10:49] LABS: Glucose Point of Care 78 (65-105)
[2021-02-18 13:21] LABS: Glucose Point of Care 174 (65-105)
--- NOTE | 2021-02-18 17:01 | PM.IMPN ---
Progress Note: A&P Assessment and Plan (1) Pneumonia due to 2019-nCoV: Code(s): U07.1 - COVID-19; J12.82 - Pneumonia due to coronavirus disease 2019 Status: Acute Assessment and Plan: patient is on Remdesivir and Dexamethasone (2) Acute respiratory failure due to COVID-19: Code(s): U07.1 - COVID-19; J96.00 - Acute respiratory failure, unspecified whether with hypoxia or hypercapnia Status: Acute Assessment and Plan: currently on high-flow nasal cannula/ airvow breathing treatments BiPAP at nighttime continue efforts to wean oxygen down supportive care continuous pulse ox (3) Sepsis: Code(s): A41.9 - Sepsis, unspecified organism Status: Acute Assessment and Plan: secondary to COVID pneumonia early goal therapy ongoing (4) Type 2 myocardial infarction: Code(s): I21.A1 - Myocardial infarction type 2 Status: Acute Assessment and Plan: likely secondary to hypoxia supportive care (5) Elevated troponin: Code(s): R77.8 - Other specified abnormalities of plasma proteins Status: Acute Assessment and Plan: likely troponin leakage secondary to hypoxia Subjective Date/time seen: 02/18/21 17:01 I feel much better Review of Systems Review of Systems: Narrative: patient with no complaints at this time states that his appetite has improved Exam Narrative: Exam Narrative: sitting in chair he is on high-flow nasal cannula Airvo 50% and 15 L saturating at 92% Const: General: comfortable, no acute distress, well developed, alert and awake Nutritional Appearance: average body habitus Orientation/consciousness: patient oriented x3 HENMT: Head: normal to inspection, normocephalic and atraumatic Ears: hearing grossly normal bilaterally Face and sinus: normal facial exam Eyes: General: appearance normal, both eyes and all related structures Pupils: Equal, round and reactive pupils present EOM: EOMs intact bilaterally Neck: Neck: full ROM, no lymphadenopathy and no JVD Thyroid: thyroid normal Lymphatic: no lymphadenopathy noted Resp: Effort & Inspection: normal respiratory effort and able to speak in complete sentences Auscultation: clear to auscultation bilaterally and diminished lung sounds Cardio: Jugular venous distension: no JVD Rate: regular rate Rhythm: regular rhythm Heart sounds: S1 normal heart sound present and S2 normal heart sound present GI: GI Palp: Yes Soft to palpation and Yes No hepatosplenomegaly present : General: Yes deferred Skin: Rashes: no rashes Wounds: no wounds Neuro: General: patient oriented x3 and CN's II-XI intact bilaterally Cranial nerves: Yes CN's II-XII intact bilaterally and Yes Equal, round and reactive pupils present Cognition (Neuro): normal cognition Speech: normal speech Gait exam (Neuro): Normal gait present Motor exam (neuro): 5/5 motor strength present throughout Extrem: General: normal to inspection, full ROM, no joint enlargement and no pedal edema Objective Data Vital Signs Vital Signs: Vital Signs - 24 hr 02/17/21 18:00 02/17/21 20:00 02/17/21 20:08 Temperature 97.6 F Pulse Rate 80 65 74 Respiratory Rate 23 H 22 H 20 Blood Pressure 145/97 H 134/79 Pulse Oximetry 92 97 93 02/17/21 20:23 02/17/21 20:26 02/17/21 22:00 Temperature 98.7 F Pulse Rate 75 78 69 Respiratory Rate 22 H 18 Blood Pressure 159/99 H Pulse Oximetry 99 02/17/21 22:50 02/18/21 00:00 02/18/21 01:07 Temperature Pulse Rate 54 L 55 L 63 Respiratory Rate 25 H 20 26 H Blood Pressure 165/106 H Pulse Oximetry 98 99 02/18/21 01:08 02/18/21 02:00 02/18/21 04:00 Temperature 98.7 F Pulse Rate 72 60 Respiratory Rate 18 20 Blood Pressure 162/95 H 151/90 H 146/88 H Pulse Oximetry 97 95 02/18/21 06:00 02/18/21 07:30 02/18/21 07:40 Temperature 98.4 F Pulse Rate 60 79 78 Respiratory Rate 18 27 H 27 H Blood Pressure 155/98 H Pulse Oximetry
[2021-02-18 18:00] LABS: Glucose Point of Care 171 (65-105)
[2021-02-19] VITALS (29 sets, daily range): BP systolic 122–146; BP diastolic 65–97; PULSE 50–81; RESP 16–24; TEMP 36.2–37.2; O2SAT 92–98
[2021-02-19] MEDS: ALBUTEROL SULFATE NEB 2.5 MG/0.5 ML INH INHALATION ×4 (02:03→21:12)
[2021-02-19] MEDS: IPRATROPIUM BR 0.02% INH SOLN 0.5 MG/2.5 ML VIAL INHALATION ×4 (02:03→21:12)
[2021-02-19] MEDS: ENOXAPARIN 30 MG/0.3 ML SYRINGE SUB-Q ×2 (04:44→17:08)
[2021-02-19] MEDS: ENOXAPARIN 100 MG/ML SYRINGE SUB-Q ×2 (04:44→17:08)
[2021-02-19 04:50] LABS: Hematocrit 40.2 % (42.0-52.0); Hemoglobin 13.6 g/dL (14.0-18.0); Mean Corpuscular HGB Conc 33.8 g/dl (32-36); Mean Corpuscular Hemoglobin 29.6 pg (26-34); Mean Corpuscular Volume 87.6 fl (80-100); Platelet Count Result 366 k/mm3 (150-375); Red Blood Count 4.59 M/mm3 (4.6-6.20); Red Cell Distribution Width 13.6 % (11.5-14.5); White Blood Count 11.5 K/mm3 (4.5-10.0)
[2021-02-19 05:15] LABS: D Dimer 5.38 ug/mL (<0.48)
[2021-02-19 05:51] LABS: Alanine Aminotransferase 131 U/L (4-50); Albumin Level 2.7 g/dL (3.5-5.1); Alkaline Phosphatase 46 U/L (38-126); Anion Gap 2 mmol/L (8-16); Aspartate Amino Transferase 72 U/L (17-59); Bilirubin,Total 0.6 mg/dL (0.2-1.3); Blood Urea Nitrogen 23 mg/dL (9-20); Calcium 7.4 mg/dL (8.4-10.2); Carbon Dioxide 26 mmol/L (22-30); Chloride 107 mmol/L (98-107); Estimated CRCL calculation 133 ml/min; Estimated Glomerular Filt Rate > 60; Glucose 107 mg/dL (75-110); Magnesium 2.3 mg/dL (1.6-2.3); Potassium 4.3 mmol/L (3.4-5.0); Sodium 135 mmol/L (137-145)
[2021-02-19] MEDS: ASPIRIN 325 MG TABLET PO (07:48)
[2021-02-19] MEDS: DEXAMETHASONE SOD PHOS INJ 4 MG/ML VIAL 6 MG IV PUSH (07:48)
[2021-02-19] MEDS: METOPROLOL TARTRATE 25 MG TABLET PO ×2 (07:49→21:23)
[2021-02-19] MEDS: PANTOPRAZOLE SODIUM IV 40 MG VIAL IV PUSH (07:49)
[2021-02-19] MEDS: ZINC SULFATE 220 MG CAPSULE PO (07:49)
[2021-02-19] MEDS: CHOLECALCIFEROL 1,000 UNITS TABLET 1000 UNITS PO (07:51)
[2021-02-19] MEDS: ASCORBIC ACID 500 MG TABLET 1000 MG PO (07:51)
[2021-02-19] MEDS: BUDESONIDE RESPULE NEB 0.5 MG/2 ML AMP INHALATION ×2 (08:04→21:12)
--- NOTE | 2021-02-19 08:37 | WPDINTPN ---
Progress Note: A&P Assessment and Plan (1) Acute respiratory failure due to COVID-19: Code(s): U07.1 - COVID-19; J96.00 - Acute respiratory failure, unspecified whether with hypoxia or hypercapnia Status: Acute Assessment and Plan: Acute respiratory failure secondary to COVID-19 pneumonia. SARS-CoV-2 PCR positive 1 week prior to admission. Patient admitted with pneumonia respiratory failure. Chest x-ray shows Diffuse acute airspace disease, most likely infection. Patient is in Airborne, Droplet and Contact Isolation Continue dexamethasone (initiated 02/16), remdesivir (initiated 02/16) Currently on BiPAP at 60% FiO2. Continue Airvo during the day and placed back on BiPAP overnight. Up in chair again today Wean FiO2 to maintain O2 sats > 92% Discussed with patient, if his condition worsens, he agrees with intubation and mechanical ventilation Empiric Rocephin and doxycycline antibiotics for empiric bacterial coverage, will continue for total of 5 days Inflammatory markers trending down D-dimer significantly elevated, patient started on therapeutic Lovenox, D-dimer trending down Continue vitamin-D, vitamin-C and zinc (2) Sepsis: Code(s): A41.9 - Sepsis, unspecified organism Status: Acute Assessment and Plan: RESOLVED Blood cultures 02/16: No growth to date x2 bottles (3) Elevated troponin: Code(s): R77.8 - Other specified abnormalities of plasma proteins Status: Acute Assessment and Plan: Minimally elevated troponin likely secondary to respiratory failure and distress EKG shows T-wave abnormality but no ST elevation Troponins elevated but plateaued, could be related to respiratory distress and hypoxia, type 2 infarct Continue aspirin low-dose beta-mika -BNP was 544 Echocardiogram 02/15/2021: Normal LV dimension, LVSF is normal, EF 60-65%. Grade 1 diastolic dysfunction Additional Plan DVT prophylaxis -Lovenox subcu Stress ulcer prophylaxis -PPI Nutrition -NPO for now Code Status -patient requests to be full code Full Code. He is not has 2 children but they do not live in this area and are not close to him. He requested to contact his sister if he is unable to make his decisions for himself. Total Critical Care Time - 31 minutes Due to a high probability of clinically significant, life threatening deterioration, the patient required my highest level of preparedness to intervene emergently and I personally spent this critical care time directly and personally managing the patient. This critical care time included obtaining a history; examining the patient; pulse oximetry; ordering and review of studies; arranging urgent treatment with development of a management plan; evaluation of patient's response to treatment; frequent reassessment; and discussions with other providers. It was exclusive of separately billable procedures and treating other patients and teaching time. Please see Assessment and Plan section and the rest of the note for further information on patient assessment and treatment Subjective Date/time seen: 02/19/21 08:37 Interval history: Reason for consult COVID-19 19 pneumonia, acute respiratory failure requiring BiPAP, elevated lactic acid which has resolved after IV fluids, hypoxia 02/18/2021: Patient remains on BiPAP, 19/06, 60% FiO2. Has been on Airvo all day yesterday on 55 L flow rate and 55% FiO2. Patient is awake, alert, oriented x3, nonfocal. Patient denies any shortness of breath or respiratory distress, chest pain, nausea, vomiting, diarrhea, abdominal pain. Complains of mild cough which is bearable. Urine output has been adequate, p.o. intake has been good Review of Systems Review of Systems: All systems reviewed & are unremarkable except as noted in HPI and below (HPI) Exam Narrative: Exam Narrative: General: Pt is alert awake and on BiPAP Lungs/Chest: Trachea central course BS B/L, bibasilar crackles, no wheezing, Cardiac: RRR.
[2021-02-19] MEDS: REMDESIVIR 100 MG/NS 250 ML 100 MG/250 ML BAG 250 MG IVPB (09:07)
--- NOTE | 2021-02-19 13:08 | PM.IMPN ---
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 (2) Pneumonia due to 2019-nCoV: Code(s): U07.1 - COVID-19; J12.82 - Pneumonia due to coronavirus disease 2019 Status: Acute Assessment and Plan: REMDESIVIR AND DEXAMETHASONE (3) Sepsis: Code(s): A41.9 - Sepsis, unspecified organism Status: Acute Assessment and Plan: LIKELY SECONDARY TO COVID PNEUMONIA EARLY GOAL-DIRECTED THERAPY ON GOING (4) Type 2 myocardial infarction: Code(s): I21.A1 - Myocardial infarction type 2 Status: Acute Assessment and Plan: T-WAVE CHANGES BUT NO ST CHANGES LIKELY SECONDARY TO HYPOXIC RESPIRATORY FAILURE AND DEMAND ISCHEMIA TROPONIN LEAKAGE SUPPORTIVE CARE (5) Elevated troponin: Code(s): R77.8 - Other specified abnormalities of plasma proteins Status: Acute Assessment and Plan: HAS PLATEAUED Subjective Date/time seen: 02/19/21 13:08 AND FEELING BETTER Review of Systems Review of Systems: Narrative: PATIENT DENIES ANY COMPLAINTS AT THIS MOMENT STATED HIS APPETITE IS MUCH BETTER Exam Narrative: Exam Narrative: SITTING ON CHAIR HIGH-FLOW NASAL CANNULA BY AIRVO ON Const: General: comfortable, no acute distress, well developed, alert and awake Nutritional Appearance: average body habitus Orientation/consciousness: patient oriented x3 HENMT: Head: normal to inspection, normocephalic and atraumatic Ears: hearing grossly normal bilaterally Face and sinus: normal facial exam Eyes: General: appearance normal, both eyes and all related structures Pupils: Equal, round and reactive pupils present EOM: EOMs intact bilaterally Neck: Neck: full ROM, no lymphadenopathy and no JVD Thyroid: thyroid normal Lymphatic: no lymphadenopathy noted Resp: Effort & Inspection: normal respiratory effort and able to speak in complete sentences Auscultation: clear to auscultation bilaterally and diminished lung sounds Cardio: Jugular venous distension: no JVD Rate: regular rate Rhythm: regular rhythm Heart sounds: S1 normal heart sound present and S2 normal heart sound present GI: GI Palp: Yes Soft to palpation and Yes No hepatosplenomegaly present : General: Yes deferred Skin: Rashes: no rashes Wounds: no wounds Neuro: General: patient oriented x3 and CN's II-XI intact bilaterally Cranial nerves: Yes CN's II-XII intact bilaterally and Yes Equal, round and reactive pupils present Cognition (Neuro): normal cognition Speech: normal speech Gait exam (Neuro): Normal gait present Motor exam (neuro): 5/5 motor strength present throughout Extrem: General: normal to inspection, full ROM, no joint enlargement and no pedal edema Objective Data Vital Signs Vital Signs: Vital Signs - 24 hr 02/18/21 13:17 02/18/21 13:26 02/18/21 13:27 Temperature Pulse Rate 85 79 76 Respiratory Rate 19 22 H 23 H Blood Pressure Pulse Oximetry 93 02/18/21 14:00 02/18/21 16:00 02/18/21 18:00 Temperature 98.3 F Pulse Rate 80 77 71 Respiratory Rate 23 H 21 H 21 H Blood Pressure 155/84 H 114/72 119/75 Pulse Oximetry 93 94 94 02/18/21 20:00 02/18/21 20:14 02/18/21 20:15 Temperature 98.5 F Pulse Rate 72 68 68 Respiratory Rate 18 24 H 24 H Blood Pressure 136/82 Pulse Oximetry 97 94 02/18/21 20:57 02/18/21 22:00 02/18/21 22:30 Temperature Pulse Rate 95 75 69 Respiratory Rate 18 17 Blood Pressure 137/88 Pulse Oximetry 97 96 02/19/21 00:00 02/19/21 02:00 02/19/21 02:04 Temperature 98.9 F Pulse Rate 53 L 60 69 Respiratory Rate 18 18 17 Blood Pressure 140/96 H 129/80
[2021-02-19 16:32] LABS: Glucose Point of Care 93 (65-105)
[2021-02-19 17:15] LABS: Glucose Point of Care 174 (65-105)
[2021-02-19 18:15] LABS: Glucose Point of Care 149 (65-105)
[2021-02-19 21:58] LABS: Glucose Point of Care 150 (65-105)
[2021-02-20] VITALS (28 sets, daily range): BP systolic 116–161; BP diastolic 70–93; PULSE 52–97; RESP 15–23; TEMP 35.7–36.7; O2SAT 90–100
[2021-02-20] MEDS: IPRATROPIUM BR 0.02% INH SOLN 0.5 MG/2.5 ML VIAL INHALATION ×4 (02:38→20:27)
[2021-02-20] MEDS: ALBUTEROL SULFATE NEB 2.5 MG/0.5 ML INH INHALATION ×4 (02:38→20:27)
[2021-02-20] MEDS: ENOXAPARIN 30 MG/0.3 ML SYRINGE SUB-Q ×2 (04:32→17:24)
[2021-02-20] MEDS: ENOXAPARIN 100 MG/ML SYRINGE SUB-Q ×2 (04:32→17:24)
[2021-02-20 04:48] LABS: Hematocrit 40.1 % (42.0-52.0); Hemoglobin 13.6 g/dL (14.0-18.0); Mean Corpuscular HGB Conc 33.9 g/dl (32-36); Mean Corpuscular Hemoglobin 29.6 pg (26-34); Mean Corpuscular Volume 87.4 fl (80-100); Platelet Count Result 398 k/mm3 (150-375); Red Blood Count 4.59 M/mm3 (4.6-6.20); Red Cell Distribution Width 13.5 % (11.5-14.5); White Blood Count 11.5 K/mm3 (4.5-10.0)
[2021-02-20 05:02] LABS: Alanine Aminotransferase 145 U/L (4-50); Albumin Level 2.7 g/dL (3.5-5.1); Alkaline Phosphatase 43 U/L (38-126); Anion Gap 4 mmol/L (8-16); Aspartate Amino Transferase 66 U/L (17-59); Bilirubin,Total 0.5 mg/dL (0.2-1.3); Blood Urea Nitrogen 23 mg/dL (9-20); CRP 3.2 mg/dL (<1.0); Carbon Dioxide 24 mmol/L (22-30); Chloride 108 mmol/L (98-107); Estimated CRCL calculation 133 ml/min; Estimated Glomerular Filt Rate > 60; Glucose 101 mg/dL (75-110); Lactate Dehydrogenase 1111 U/L (313-618); Potassium 4.6 mmol/L (3.4-5.0); Sodium 136 mmol/L (137-145)
[2021-02-20] MEDS: ASCORBIC ACID 500 MG TABLET 1000 MG PO (08:19)
[2021-02-20] MEDS: ASPIRIN 325 MG TABLET PO (08:20)
[2021-02-20] MEDS: DEXAMETHASONE SOD PHOS INJ 4 MG/ML VIAL 6 MG IV PUSH (08:20)
[2021-02-20] MEDS: PANTOPRAZOLE SODIUM IV 40 MG VIAL IV PUSH (08:20)
[2021-02-20] MEDS: CHOLECALCIFEROL 1,000 UNITS TABLET 1000 UNITS PO (08:20)
[2021-02-20] MEDS: ZINC SULFATE 220 MG CAPSULE PO (08:20)
[2021-02-20] MEDS: METOPROLOL TARTRATE 25 MG TABLET PO ×2 (08:20→20:15)
[2021-02-20] MEDS: BUDESONIDE RESPULE NEB 0.5 MG/2 ML AMP INHALATION ×2 (08:24→20:27)
--- NOTE | 2021-02-20 08:31 | WPDINTPN ---
Progress Note: A&P Assessment and Plan (1) Acute respiratory failure due to COVID-19: Code(s): U07.1 - COVID-19; J96.00 - Acute respiratory failure, unspecified whether with hypoxia or hypercapnia Status: Acute Assessment and Plan: Acute respiratory failure secondary to COVID-19 pneumonia. SARS-CoV-2 PCR positive 1 week prior to admission. Patient admitted with pneumonia respiratory failure. Chest x-ray shows Diffuse acute airspace disease, most likely infection. Patient is in Airborne, Droplet and Contact Isolation Continue dexamethasone (initiated 02/16), remdesivir (initiated 02/16) Currently on BiPAP at 60% FiO2. Continue Airvo during the day and placed back on BiPAP overnight. Up in chair again today Wean FiO2 to maintain O2 sats > 92% Empiric Rocephin and doxycycline antibiotics for empiric bacterial coverage, will continue for total of 5 days -will discontinue today, 02/20/21 Inflammatory markers trending down D-dimer trending down Continue vitamin-D, vitamin-C and zinc (2) Sepsis: Code(s): A41.9 - Sepsis, unspecified organism Status: Acute Assessment and Plan: RESOLVED Blood cultures 02/16: No growth to date x2 bottles (3) Elevated troponin: Code(s): R77.8 - Other specified abnormalities of plasma proteins Status: Acute Assessment and Plan: Minimally elevated troponin likely secondary to respiratory failure and distress EKG shows T-wave abnormality but no ST elevation Troponins elevated but plateaued, could be related to respiratory distress and hypoxia, type 2 infarct Continue aspirin low-dose beta-mika -BNP was 544 Echocardiogram 02/15/2021: Normal LV dimension, LVSF is normal, EF 60-65%. Grade 1 diastolic dysfunction Additional Plan DVT prophylaxis -Lovenox subcu Stress ulcer prophylaxis -PPI Nutrition -NPO for now Code Status -patient requests to be full code Full Code. He is not has 2 children but they do not live in this area and are not close to him. He requested to contact his sister if he is unable to make his decisions for himself. Total Critical Care Time - 31 minutes Due to a high probability of clinically significant, life threatening deterioration, the patient required my highest level of preparedness to intervene emergently and I personally spent this critical care time directly and personally managing the patient. This critical care time included obtaining a history; examining the patient; pulse oximetry; ordering and review of studies; arranging urgent treatment with development of a management plan; evaluation of patient's response to treatment; frequent reassessment; and discussions with other providers. It was exclusive of separately billable procedures and treating other patients and teaching time. Please see Assessment and Plan section and the rest of the note for further information on patient assessment and treatment Subjective Date/time seen: 02/20/21 08:31 Interval history: Reason for consult COVID-19 19 pneumonia, acute respiratory failure requiring BiPAP, elevated lactic acid which has resolved after IV fluids, hypoxia 02/20/2021:, is awake, alert, oriented, on Airvo, 40 L flow rate and 45% FiO2 with adequate O2 sats. Patient stated he coughed up a lot of junk last night. Denies any loss of taste or smell, appetite is good. Patient is having adequate urine output, afebrile, hemodynamically stable. Denies any respiratory distress or shortness of breath, chest pain, nausea, vomiting, abdominal pain. Did not complain of a cough. Review of Systems Review of Systems: All systems reviewed & are unremarkable except as noted in HPI and below (HPI) Exam Narrative: Exam Narrative: General: Pt is alert awake and on BiPAP Lungs/Chest: Trachea central course BS B/L, bibasilar crackles, no wheezing, Cardiac: RRR. Normal S1 S2. No murmurs Circulation: Pedal pulses are intact and symmetrical. Abdomen: Normal bowel sounds. Obes
[2021-02-20 08:37] LABS: Glucose Point of Care 81 (65-105)
--- NOTE | 2021-02-20 11:40 | PM.IMPN ---
Progress Note: A&P Assessment and Plan (1) Acute respiratory failure due to COVID-19: Code(s): U07.1 - COVID-19; J96.00 - Acute respiratory failure, unspecified whether with hypoxia or hypercapnia Status: Acute Assessment and Plan: Currently on high-flow nasal cannula airvo BiPAP at nighttime (2) Pneumonia due to 2019-nCoV: Code(s): U07.1 - COVID-19; J12.82 - Pneumonia due to coronavirus disease 2019 Status: Acute Assessment and Plan: on Remdesivir and Dexamethasone. (3) Type 2 myocardial infarction: Code(s): I21.A1 - Myocardial infarction type 2 Status: Acute Assessment and Plan: Stable (4) Elevated troponin: Code(s): R77.8 - Other specified abnormalities of plasma proteins Status: Acute Assessment and Plan: Likely secondary to step 2 myocardial infarction There was some T-wave abnormality but no ST changes Likely more on the line with known [facility] troponin elevation (5) Sepsis: Code(s): A41.9 - Sepsis, unspecified organism Status: Acute Assessment and Plan: Likely secondary to COVID-19 pneumonia Early goal-directed therapy ongoing Subjective Date/time seen: 02/20/21 11:40 Patient states that he is doing much better Review of Systems Review of Systems: Narrative: Patient denies any issues at this time Exam Narrative: Exam Narrative: Sitting in no acute distress high-flow nasal cannula airvo on Const: General: comfortable, no acute distress, well developed, alert and awake Nutritional Appearance: overweight Orientation/consciousness: patient oriented x3 HENMT: Head: normal to inspection, normocephalic and atraumatic Ears: hearing grossly normal bilaterally Face and sinus: normal facial exam Eyes: General: appearance normal, both eyes and all related structures Pupils: Equal, round and reactive pupils present EOM: EOMs intact bilaterally Neck: Neck: full ROM, no lymphadenopathy and no JVD Thyroid: thyroid normal Lymphatic: no lymphadenopathy noted Resp: Effort & Inspection: normal respiratory effort and able to speak in complete sentences Auscultation: clear to auscultation bilaterally Cardio: Jugular venous distension: no JVD Rate: regular rate Rhythm: regular rhythm Heart sounds: S1 normal heart sound present and S2 normal heart sound present GI: GI Palp: Yes Soft to palpation and Yes No hepatosplenomegaly present : General: Yes deferred Skin: Rashes: no rashes Wounds: no wounds Neuro: General: patient oriented x3 and CN's II-XI intact bilaterally Cranial nerves: Yes CN's II-XII intact bilaterally and Yes Equal, round and reactive pupils present Cognition (Neuro): normal cognition Speech: normal speech Gait exam (Neuro): Normal gait present Motor exam (neuro): 5/5 motor strength present throughout Extrem: General: normal to inspection, full ROM, no joint enlargement and no pedal edema Objective Data Vital Signs Vital Signs: Vital Signs - 24 hr 02/19/21 12:00 02/19/21 14:00 02/19/21 14:01 Temperature 97.6 F Pulse Rate 78 71 74 Respiratory Rate 20 20 21 H Blood Pressure 139/97 H 127/89 Pulse Oximetry 92 94 02/19/21 14:25 02/19/21 14:41 02/19/21 15:32 Temperature Pulse Rate 71 68 66 Respiratory Rate 17 23 H 20 Blood Pressure Pulse Oximetry 96 94 02/19/21 16:00 02/19/21 18:00 02/19/21 19:57 Temperature 97.2 F L 98.4 F Pulse Rate 69 63 73 Respiratory Rate 20 20 19 Blood Pressure 132/96 H 133/94 H 146/84 H Pulse Oximetry 93 95 94 02/19/21 20:00 02/19/21 21:13 02/19/21 21:17 Temperature Pulse Rate 67 66 73 Respiratory Rate 19 16 Blood Pressure Pulse Oximetry 94 95 02/19/21 21:23 02/19/21 21:25 02/19/21 22:00 Temperature Pulse Rate 69 79 75 Respiratory Rate 20 18 Blood Pressure 136/87 Pulse Oximetry 95 02/19/21 23:25 02/20/21 00:00 02/20/21 02:00 Temperature 96.5 F L Pulse Rate 59 L 52 L 58 L Respiratory Rate 21 H 15 15 Blood
[2021-02-20 11:52] LABS: Glucose Point of Care 163 (65-105)
[2021-02-21] VITALS (19 sets, daily range): BP systolic 117–148; BP diastolic 78–95; PULSE 59–94; RESP 18–26; TEMP 36.2–36.8; O2SAT 91–96
[2021-02-21] MEDS: IPRATROPIUM BR 0.02% INH SOLN 0.5 MG/2.5 ML VIAL INHALATION ×4 (01:44→20:43)
[2021-02-21] MEDS: ALBUTEROL SULFATE NEB 2.5 MG/0.5 ML INH INHALATION ×4 (01:44→20:43)
[2021-02-21] MEDS: ENOXAPARIN 100 MG/ML SYRINGE SUB-Q ×2 (05:38→17:20)
[2021-02-21] MEDS: ENOXAPARIN 30 MG/0.3 ML SYRINGE SUB-Q ×2 (05:39→17:21)
[2021-02-21 06:09] LABS: Basophils Absolute Auto 0.1 K/mm3 (0.0-0.1); Basophils Percent Auto 0.5 % (0.2-1.2); Eosinophils Absolute Auto 0.2 K/mm3 (0-0.3); Eosinophils Percent Auto 1.4 % (0-4.4); Hematocrit 41.4 % (42.0-52.0); Hemoglobin 13.7 g/dL (14.0-18.0); Immature Granulocyte Absolute 0.57 K/mm3 (0.00-0.031); Immature Granulocyte Percent A 4.6 % (0-0.5); Lymphocytes Absolute Auto 1.55 K/mm3 (0.9-3.2); Lymphocytes Percent Auto 12.4 % (18.3-44.2); Mean Corpuscular HGB Conc 33.1 g/dl (32-36); Mean Corpuscular Hemoglobin 28.7 pg (26-34); Mean Corpuscular Volume 86.6 fl (80-100); Mean Platelet Volume 9.2 fl (7.4-10.4); Monocytes Absolute Auto 1.1 K/mm3 (0.1-0.6); Neutrophils Percent Auto 72.1 % (45.5-73.1); Platelet Count Result 451 k/mm3 (150-375); Red Blood Count 4.78 M/mm3 (4.6-6.20); Red Cell Distribution Width 13.2 % (11.5-14.5); White Blood Count 12.5 K/mm3 (4.5-10.0)
[2021-02-21 06:23] LABS: D Dimer 3.53 ug/mL (<0.48)
[2021-02-21 06:25] LABS: Anion Gap 6 mmol/L (8-16); Blood Urea Nitrogen 20 mg/dL (9-20); Calcium 8.1 mg/dL (8.4-10.2); Carbon Dioxide 25 mmol/L (22-30); Chloride 107 mmol/L (98-107); Estimated CRCL calculation 132 ml/min; Estimated Glomerular Filt Rate > 60; Glucose 95 mg/dL (75-110); Potassium 4.5 mmol/L (3.4-5.0); Sodium 138 mmol/L (137-145)
[2021-02-21] MEDS: BUDESONIDE RESPULE NEB 0.5 MG/2 ML AMP INHALATION ×2 (07:58→20:43)
[2021-02-21] MEDS: ASCORBIC ACID 500 MG TABLET 1000 MG PO (08:17)
[2021-02-21] MEDS: ASPIRIN 325 MG TABLET PO (08:17)
[2021-02-21] MEDS: CHOLECALCIFEROL 1,000 UNITS TABLET 1000 UNITS PO (08:18)
[2021-02-21] MEDS: DEXAMETHASONE SOD PHOS INJ 4 MG/ML VIAL 6 MG IV PUSH (08:18)
[2021-02-21] MEDS: ZINC SULFATE 220 MG CAPSULE PO (08:18)
[2021-02-21] MEDS: METOPROLOL TARTRATE 25 MG TABLET PO ×2 (08:18→20:22)
[2021-02-21] MEDS: PANTOPRAZOLE SODIUM IV 40 MG VIAL IV PUSH (08:18)
--- NOTE | 2021-02-21 08:41 | WPDINTPN ---
Progress Note: A&P Assessment and Plan (1) Acute respiratory failure due to COVID-19: Code(s): U07.1 - COVID-19; J96.00 - Acute respiratory failure, unspecified whether with hypoxia or hypercapnia Status: Acute Assessment and Plan: Acute respiratory failure secondary to COVID-19 pneumonia. SARS-CoV-2 PCR positive 1 week prior to admission. Patient admitted with pneumonia respiratory failure. Chest x-ray shows Diffuse acute airspace disease, most likely infection. Patient is in Airborne, Droplet and Contact Isolation Continue dexamethasone (initiated 02/16), completed remdesivir (initiated 02/16) Currently on 5 L nasal cannula. Continue sit up in chair Wean FiO2 to maintain O2 sats > 92% Status post 5 days of Rocephin and doxycycline Inflammatory markers trending down D-dimer trending down Continue vitamin-D, vitamin-C and zinc (2) Sepsis: Code(s): A41.9 - Sepsis, unspecified organism Status: Acute Assessment and Plan: RESOLVED Blood cultures 02/16: No growth to date x2 bottles (3) Elevated troponin: Code(s): R77.8 - Other specified abnormalities of plasma proteins Status: Acute Assessment and Plan: Minimally elevated troponin likely secondary to respiratory failure and distress EKG shows T-wave abnormality but no ST elevation Troponins elevated but plateaued, could be related to respiratory distress and hypoxia, type 2 infarct Continue aspirin low-dose beta-mika -BNP was 544 Echocardiogram 02/15/2021: Normal LV dimension, LVSF is normal, EF 60-65%. Grade 1 diastolic dysfunction Additional Plan DVT prophylaxis -Lovenox subcu Stress ulcer prophylaxis -PPI Nutrition -NPO for now Code Status -patient requests to be full code Full Code. He is not has 2 children but they do not live in this area and are not close to him. He requested to contact his sister if he is unable to make his decisions for himself. Total Critical Care Time - 31 minutes Due to a high probability of clinically significant, life threatening deterioration, the patient required my highest level of preparedness to intervene emergently and I personally spent this critical care time directly and personally managing the patient. This critical care time included obtaining a history; examining the patient; pulse oximetry; ordering and review of studies; arranging urgent treatment with development of a management plan; evaluation of patient's response to treatment; frequent reassessment; and discussions with other providers. It was exclusive of separately billable procedures and treating other patients and teaching time. Please see Assessment and Plan section and the rest of the note for further information on patient assessment and treatment Subjective Date/time seen: 02/21/21 08:41 Interval history: Reason for consult COVID-19 19 pneumonia, acute respiratory failure requiring BiPAP, elevated lactic acid which has resolved after IV fluids, hypoxia 02/21/2021: Patient is awake, sitting up in bed, on 5 L nasal cannula with good O2 sats. Hemodynamically stable. Denies any shortness of breath, chest pain, abdominal pain, nausea vomiting. Afebrile, adequate urine output. Tolerating p.o. diet Review of Systems Review of Systems: All systems reviewed & are unremarkable except as noted in HPI and below (HPI) Exam Narrative: Exam Narrative: General: Pt is alert awake and on BiPAP Lungs/Chest: Trachea central course BS B/L, bibasilar rales, no wheezing, Cardiac: RRR. Normal S1 S2. No murmurs Circulation: Pedal pulses are intact and symmetrical. Abdomen: Normal bowel sounds. Obese Soft. NT. ND. Extremities: No clubbing, cyanosis or edema. Warm : Gonzalez in place Neurologic: Follows commands. Moves all 4 extremities PERRL alert oriented x3 Skin: No Rash Objective Data Vital Signs Vital Signs: Vital Signs - 24 hr 02/20/21 09:57 02/20/21 10:00 02/20/21 10:30 Temperature Pulse Rate
--- NOTE | 2021-02-21 13:38 | PC.NURSE ---
This patient, Henrique Meyers, was received from [ICU] on 02/21/21 at 1330. Patient/family oriented to unit policies and routines
--- NOTE | 2021-02-21 13:38 | PC.NURSE ---
Patient transferred to room 327 at 1330. Report given to Jyoti ALVAREZ and all questions answered. Patient transferred on 3L oxygen in stable condition
--- NOTE | 2021-02-21 14:14 | PM.IMPN ---
Progress Note: A&P Assessment and Plan (1) Acute respiratory failure due to COVID-19: Code(s): U07.1 - COVID-19; J96.00 - Acute respiratory failure, unspecified whether with hypoxia or hypercapnia Status: Acute Assessment and Plan: patient on high-flow nasal cannula/Airvo improved supportive care breathing treatments continue to wean off of oxygen (2) Pneumonia due to 2019-nCoV: Code(s): U07.1 - COVID-19; J12.82 - Pneumonia due to coronavirus disease 2019 Status: Acute Assessment and Plan: On Remdesivir and Dexamethasone. (3) Sepsis: Code(s): A41.9 - Sepsis, unspecified organism Status: Acute Assessment and Plan: likely secondary to COVID-19 pneumonia ongoing early goal-directed therapy (4) Elevated troponin: Code(s): R77.8 - Other specified abnormalities of plasma proteins Status: Acute Assessment and Plan: more in the lines of known myocardial ischemia infarction as no EKG changes (5) Type 2 myocardial infarction: Code(s): I21.A1 - Myocardial infarction type 2 Status: Acute Assessment and Plan: no myocardial ischemia Subjective Date/time seen: 02/21/21 14:14 I feel fine. Review of Systems Review of Systems: Narrative: I feel fine patient denies any issues at the time of my visit Constitutional: Comments: no fevers no rigors no chills Cardiovascular: Comments: no leg swelling no PND no orthopnea Respiratory: Comments: denies any shortness of breath at the present time no cough Gastrointestinal: Comments: no nausea no vomiting no diarrhea no constipation no abdominal pain Musculoskeletal: Comments: no joint pain or muscle pain Integumentary/Breasts: Comments: no rashes Neurologic: Comments: no sensorimotor deficit Exam Narrative: Exam Narrative: patient is sitting in no acute distress high-flow nasal cannula by airvo Const: General: comfortable, no acute distress, well developed, alert and awake Nutritional Appearance: average body habitus Orientation/consciousness: patient oriented x3 HENMT: Head: normal to inspection, normocephalic and atraumatic Ears: hearing grossly normal bilaterally Face and sinus: normal facial exam Eyes: General: appearance normal, both eyes and all related structures Pupils: Equal, round and reactive pupils present EOM: EOMs intact bilaterally Neck: Neck: full ROM, no lymphadenopathy and no JVD Thyroid: thyroid normal Lymphatic: no lymphadenopathy noted Resp: Effort & Inspection: normal respiratory effort and able to speak in complete sentences Auscultation: clear to auscultation bilaterally Cardio: Jugular venous distension: no JVD Rate: regular rate Rhythm: regular rhythm Heart sounds: S1 normal heart sound present and S2 normal heart sound present GI: GI Palp: Yes Soft to palpation and Yes No hepatosplenomegaly present : General: Yes deferred Skin: Rashes: no rashes Wounds: no wounds Neuro: General: patient oriented x3 and CN's II-XI intact bilaterally Cranial nerves: Yes CN's II-XII intact bilaterally and Yes Equal, round and reactive pupils present Cognition (Neuro): normal cognition Speech: normal speech Gait exam (Neuro): Normal gait present Motor exam (neuro): 5/5 motor strength present throughout Extrem: General: normal to inspection, full ROM, no joint enlargement and no pedal edema Objective Data Vital Signs Vital Signs: Vital Signs - 24 hr 02/20/21 15:30 02/20/21 16:00 02/20/21 17:46 Temperature 98.1 F Pulse Rate 73 73 Respiratory Rate 20 Blood Pressure 129/80 Pulse Oximetry 92 92 02/20/21 18:00 02/20/21 20:00 02/20/21 20:15 Temperature 96.3 F L Pulse Rate 75 73 76 Respiratory Rate 18 22 H Blood Pressure 126/82 134/84 Pulse Oximetry 94 95 02/20/21 20:28 02/20/21 20:47 02/20/21 22:00 Temperature Pulse Rate 75 97 71 Respiratory Rate 23 H 21 H 23 H Blood Pressure 139/86 Pulse Oximet
[2021-02-22] VITALS (18 sets, daily range): BP systolic 120–140; BP diastolic 69–82; PULSE 73–96; RESP 18–20; TEMP 36.3–37; O2SAT 91–95
[2021-02-22] MEDS: ALBUTEROL SULFATE NEB 2.5 MG/0.5 ML INH INHALATION ×4 (02:19→20:27)
[2021-02-22] MEDS: IPRATROPIUM BR 0.02% INH SOLN 0.5 MG/2.5 ML VIAL INHALATION ×4 (02:19→20:27)
[2021-02-22] MEDS: ENOXAPARIN 30 MG/0.3 ML SYRINGE SUB-Q ×2 (05:19→17:07)
[2021-02-22] MEDS: ENOXAPARIN 100 MG/ML SYRINGE SUB-Q ×2 (05:20→17:07)
[2021-02-22] MEDS: DEXAMETHASONE SOD PHOS INJ 4 MG/ML VIAL 6 MG IV PUSH (08:31)
[2021-02-22] MEDS: ZINC SULFATE 220 MG CAPSULE PO (08:31)
[2021-02-22] MEDS: ASCORBIC ACID 500 MG TABLET 1000 MG PO (08:31)
[2021-02-22] MEDS: CHOLECALCIFEROL 1,000 UNITS TABLET 1000 UNITS PO (08:32)
[2021-02-22] MEDS: METOPROLOL TARTRATE 25 MG TABLET PO ×2 (08:32→21:13)
[2021-02-22] MEDS: ASPIRIN 325 MG TABLET PO (08:33)
[2021-02-22] MEDS: PANTOPRAZOLE SODIUM IV 40 MG VIAL IV PUSH (08:33)
--- NOTE | 2021-02-22 08:52 | PCNWS ---
Weekly nutritional screen. Patient is tolerating regular diet with adequate intake 100% of meals. No weight loss reported. No nutritional needs at this time.
[2021-02-22] MEDS: BUDESONIDE RESPULE NEB 0.5 MG/2 ML AMP INHALATION ×2 (09:21→20:28)
--- NOTE | 2021-02-22 13:17 | PCNSR ---
On 02/22/21, the student, Cnocha Mohan, provided care and completed [facility] documentation on this patient. I have reviewed the student's documentation and agree with the findings.
--- NOTE | 2021-02-22 17:52 | PM.IMPN ---
Progress Note: A&P Assessment and Plan (1) Pneumonia due to 2019-nCoV: Code(s): U07.1 - COVID-19; J12.82 - Pneumonia due to coronavirus disease 2019 Status: Acute Assessment and Plan: Remdesivir and Dexamethasone (2) Type 2 myocardial infarction: Code(s): I21.A1 - Myocardial infarction type 2 Status: Acute Assessment and Plan: More along the lines of known [place] troponin elevated as patient with no significant EKG changes (3) Elevated troponin: Code(s): R77.8 - Other specified abnormalities of plasma proteins Status: Acute Assessment and Plan: Known [place] troponin elevation No ischemic myocardial injury (4) Sepsis: Code(s): A41.9 - Sepsis, unspecified organism Status: Acute Assessment and Plan: Resolved (5) Acute respiratory failure due to COVID-19: Code(s): U07.1 - COVID-19; J96.00 - Acute respiratory failure, unspecified whether with hypoxia or hypercapnia Status: Acute Assessment and Plan: Improved Currently on oxygen by nasal cannula 3 L Continue efforts to wean him off of oxygen O2 sats at 94% Subjective Date/time seen: 02/22/21 17:52 I feel fine Review of Systems Review of Systems: Narrative: Patient presented initially to emergency room due to shortness of breath patient is now transferred from ICU to the floor Constitutional: Comments: No fevers no rigors no chills Cardiovascular: Comments: No chest pain no PND no orthopnea Respiratory: Comments: No shortness of breath Gastrointestinal: Comments: No nausea no vomiting no diarrhea no constipation Musculoskeletal: Comments: No muscle aches or pains Integumentary/Breasts: Comments: No rashes Neurologic: Comments: No sensorimotor deficit Exam Narrative: Exam Narrative: Patient is sitting in the chair nasal cannula on 3 L of oxygen Const: General: comfortable, no acute distress, well developed, alert and awake Nutritional Appearance: overweight Orientation/consciousness: patient oriented x3 HENMT: Head: normal to inspection, normocephalic and atraumatic Ears: hearing grossly normal bilaterally Face and sinus: normal facial exam Eyes: General: appearance normal, both eyes and all related structures Pupils: Equal, round and reactive pupils present EOM: EOMs intact bilaterally Neck: Neck: full ROM, no lymphadenopathy and no JVD Thyroid: thyroid normal Lymphatic: no lymphadenopathy noted Resp: Effort & Inspection: normal respiratory effort and able to speak in complete sentences Auscultation: clear to auscultation bilaterally Cardio: Jugular venous distension: no JVD Rate: regular rate Rhythm: regular rhythm Heart sounds: S1 normal heart sound present and S2 normal heart sound present GI: Inspection: obesity GI Palp: Yes Soft to palpation and Yes No hepatosplenomegaly present : General: Yes deferred Skin: Rashes: no rashes Wounds: no wounds Neuro: General: patient oriented x3 and CN's II-XI intact bilaterally Cranial nerves: Yes CN's II-XII intact bilaterally and Yes Equal, round and reactive pupils present Cognition (Neuro): normal cognition Speech: normal speech Gait exam (Neuro): Normal gait present Motor exam (neuro): 5/5 motor strength present throughout Extrem: General: normal to inspection, full ROM, no joint enlargement and no pedal edema Objective Data Vital Signs Vital Signs: Vital Signs - 24 hr 02/21/21 20:00 02/21/21 20:43 02/21/21 20:55 Temperature 97.8 F Pulse Rate 82 83 82 Respiratory Rate 20 18 18 Blood Pressure 140/80 Pulse Oximetry 94 02/22/21 00:00 02/22/21 02:20 02/22/21 02:28 Temperature 97.3 F L Pulse Rate 73 80 77 Respiratory Rate 20 18 18 Blood Pressure 131/79 Pulse Oximetry 94 02/22/21 04:00 02/22/21 08:00 02/22/21 08:30 Temperature 98.5 F 98.6 F Pulse Rate 91 80 Respiratory Rate 20 20 Blood Pressure 120/77 122/69 Pulse Oximetry 91 92 92 02/22/21 08:32 02/22/21 09:22
[2021-02-23] VITALS (17 sets, daily range): BP systolic 119–135; BP diastolic 62–85; PULSE 69–89; RESP 18–20; TEMP 36.1–36.4; O2SAT 90–94
[2021-02-23] MEDS: ALBUTEROL SULFATE NEB 2.5 MG/0.5 ML INH INHALATION ×4 (02:32→21:45)
[2021-02-23] MEDS: IPRATROPIUM BR 0.02% INH SOLN 0.5 MG/2.5 ML VIAL INHALATION ×4 (02:32→21:45)
[2021-02-23] MEDS: ENOXAPARIN 100 MG/ML SYRINGE SUB-Q ×2 (05:56→17:12)
[2021-02-23] MEDS: ENOXAPARIN 30 MG/0.3 ML SYRINGE SUB-Q ×2 (05:56→17:12)
[2021-02-23] MEDS: CHOLECALCIFEROL 1,000 UNITS TABLET 1000 UNITS PO (09:35)
[2021-02-23] MEDS: ASCORBIC ACID 500 MG TABLET 1000 MG PO (09:35)
[2021-02-23] MEDS: PANTOPRAZOLE 40 MG TABLET PO (09:35)
[2021-02-23] MEDS: DEXAMETHASONE SOD PHOS INJ 4 MG/ML VIAL 6 MG IV PUSH (09:35)
[2021-02-23] MEDS: METOPROLOL TARTRATE 25 MG TABLET PO ×2 (09:36→20:12)
[2021-02-23] MEDS: ZINC SULFATE 220 MG CAPSULE PO (09:36)
[2021-02-23] MEDS: ASPIRIN 325 MG TABLET PO (09:36)
[2021-02-23] MEDS: BUDESONIDE RESPULE NEB 0.5 MG/2 ML AMP INHALATION ×2 (10:05→21:45)
--- NOTE | 2021-02-23 15:33 | PM.IMPN ---
Progress Note: A&P Assessment and Plan (1) Pneumonia due to 2019-nCoV: Code(s): U07.1 - COVID-19; J12.82 - Pneumonia due to coronavirus disease 2019 Status: Acute Assessment and Plan: sp Remdesivir, on Dexamethasone (2) Type 2 myocardial infarction: Code(s): I21.A1 - Myocardial infarction type 2 Status: Acute Assessment and Plan: More along the lines of known [place] troponin elevated as patient with no significant EKG changes (3) Elevated troponin: Code(s): R77.8 - Other specified abnormalities of plasma proteins Status: Acute Assessment and Plan: Known [place] troponin elevation No ischemic myocardial injury (4) Sepsis: Code(s): A41.9 - Sepsis, unspecified organism Status: Acute Assessment and Plan: Resolved (5) Acute respiratory failure due to COVID-19: Code(s): U07.1 - COVID-19; J96.00 - Acute respiratory failure, unspecified whether with hypoxia or hypercapnia Status: Acute Assessment and Plan: plan to dischrage tomorrow on 3 liters of oxygen Subjective Date/time seen: 02/23/21 15:33 Interval history: 55-year-old male with no significant past medical history, obesity. Admitted with covid positive pneumonia. Pt is doing better sp dexamethasone and remdesivir. Pt is now on 3 liters of oxygen. Review of Systems Review of Systems: All systems reviewed & are unremarkable except as noted in HPI and below Exam Narrative: Exam Narrative: Patient is sitting in the chair nasal cannula on 3 L of oxygen Const: General: comfortable, no acute distress, well developed, alert, awake and ill appearing acutely Nutritional Appearance: overweight Orientation/consciousness: patient oriented x3 HENMT: Head: normal to inspection, normocephalic and atraumatic Ears: hearing grossly normal bilaterally Face and sinus: normal facial exam Eyes: General: appearance normal, both eyes and all related structures Pupils: Equal, round and reactive pupils present EOM: EOMs intact bilaterally Neck: Neck: full ROM, no lymphadenopathy and no JVD Thyroid: thyroid normal Lymphatic: no lymphadenopathy noted Resp: Effort & Inspection: normal respiratory effort Cardio: Jugular venous distension: no JVD Rate: regular rate Rhythm: regular rhythm Heart sounds: S1 normal heart sound present and S2 normal heart sound present Neuro: General: patient oriented x3 and CN's II-XI intact bilaterally Cranial nerves: Yes CN's II-XII intact bilaterally and Yes Equal, round and reactive pupils present Cognition (Neuro): normal cognition Speech: normal speech Gait exam (Neuro): Normal gait present Motor exam (neuro): 5/5 motor strength present throughout Extrem: General: normal to inspection, full ROM, no joint enlargement and no pedal edema Objective Data Vital Signs Vital Signs: Vital Signs - 24 hr 02/22/21 16:00 02/22/21 20:00 02/22/21 20:28 Temperature 36.7 C 36.4 C Pulse Rate 78 74 74 Respiratory Rate 20 20 20 Blood Pressure 134/80 140/82 Pulse Oximetry 95 95 93 02/22/21 20:44 02/22/21 21:13 02/23/21 00:00 Temperature 36.3 C L Pulse Rate 77 77 84 Respiratory Rate 20 20 Blood Pressure 122/64 Pulse Oximetry 92 02/23/21 02:32 02/23/21 02:43 02/23/21 08:00 Temperature 36.4 C L Pulse Rate 81 74 77 Respiratory Rate 20 20 20 Blood Pressure 119/74 Pulse Oximetry 90 02/23/21 09:36 02/23/21 09:49 02/23/21 10:06 Temperature Pulse Rate 89 83 Respiratory Rate 18 Blood Pressure Pulse Oximetry 93 92 02/23/21 10:19 02/23/21 12:36 02/23/21 14:42 Temperature 36.1 C L Pulse Rate 82 84 78 Respiratory Rate 18 20 18 Blood Pressure 122/62 Pulse Oximetry 91 02/23/21 14:52 Temperature Pulse Rate 80 Respiratory Rate 18 Blood Pressure Pulse Oximetry Intake/Output Intake/Output: Intake & Output 02/20/21 02/21/21 02/22/21 02/23/21 23:59 23:59 23:59 23:59 Intake Total 1730 2130 1900 980 Output Tot
[2021-02-24] VITALS (16 sets, daily range): BP systolic 117–138; BP diastolic 74–83; PULSE 73–99; RESP 16–20; TEMP 36.2–36.9; O2SAT 85–99
[2021-02-24] MEDS: ALBUTEROL SULFATE NEB 2.5 MG/0.5 ML INH INHALATION ×2 (02:33→07:54)
[2021-02-24] MEDS: IPRATROPIUM BR 0.02% INH SOLN 0.5 MG/2.5 ML VIAL INHALATION ×2 (02:33→07:54)
[2021-02-24] MEDS: ENOXAPARIN 30 MG/0.3 ML SYRINGE SUB-Q (04:53)
[2021-02-24] MEDS: ENOXAPARIN 100 MG/ML SYRINGE SUB-Q (04:53)
[2021-02-24] MEDS: BUDESONIDE RESPULE NEB 0.5 MG/2 ML AMP INHALATION (07:54)
[2021-02-24] MEDS: ASCORBIC ACID 500 MG TABLET 1000 MG PO (08:14)
[2021-02-24] MEDS: PANTOPRAZOLE 40 MG TABLET PO (08:14)
[2021-02-24] MEDS: ASPIRIN 325 MG TABLET PO (08:14)
[2021-02-24] MEDS: ZINC SULFATE 220 MG CAPSULE PO (08:15)
[2021-02-24] MEDS: METOPROLOL TARTRATE 25 MG TABLET PO (08:15)
[2021-02-24] MEDS: DEXAMETHASONE SOD PHOS INJ 4 MG/ML VIAL 6 MG IV PUSH (08:15)
[2021-02-24] MEDS: CHOLECALCIFEROL 1,000 UNITS TABLET 1000 UNITS PO (08:15)
--- NOTE | 2021-02-24 10:05 | HOMEO2EVAL ---
Evaluation was performed at [facility] Home Oxygen Evaluation RC: Home Oxygen (O2) Evaluation Start: 02/23/21 17:13 Freq: ONCE Status: Active Protocol: RPE Activity Type Activity Date Activity User E-Sign Co-Sign Detail Recorded Client Recorded Date Recorded By Document 02/24/21 09:00 [email or web address] [email or web address] 02/24/21 10:05 KMV Document 02/24/21 09:05 [email or web address] [email or web address] 02/24/21 10:05 KMV Document 02/24/21 09:10 [email or web address] [email or web address] 02/24/21 10:05 KMV Document 02/24/21 09:15 [email or web address] 02/24/21 10:05 KMV Document 02/24/21 09:20 [email or web address] 02/24/21 10:05 KMV Document 02/24/21 09:20 [email or web address] [email or web address] 02/24/21 10:05 KMV Document 02/24/21 09:25 [email or web address] [email or web address] 02/24/21 10:05 KMV Document 02/24/21 09:30 [email or web address] [email or web address] 02/24/21 10:05 KMV Document 02/24/21 09:45 [email or web address] [email or web address] 02/24/21 10:05 KMV 02/24/21 02/24/21 02/24/21 09:00 09:05 09:10 Home O2 Evaluation Test Phase Resting Resting Resting Oxygen Delivery Room Air Nasal Cannula Nasal Cannula Oxygen Flow Rate (L/min) 1 2 Pulse Oximetry (90-100 %) 86 L 88 L 90 Pulse Rate (60-100 beats/min) 75 76 73 Activity Tolerance Treatment Charges O2 Evaluation - Inpatient 02/24/21 02/24/21 02/24/21 09:15 09:20 09:20 Home O2 Evaluation Test Phase Exercise Exercise Exercise Oxygen Delivery Nasal Cannula Nasal Cannula Nasal Cannula Oxygen Flow Rate (L/min) 2 3 4 Pulse Oximetry (90-100 %) 85 L 86 L 87 L Pulse Rate (60-100 beats/min) 88 90 97 Activity Tolerance Treatment Charges 02/24/21 02/24/21 02/24/21 09:25 09:30 09:45 Home O2 Evaluation Test Phase Exercise Exercise Resting Oxygen Delivery Nasal Cannula Nasal Cannula Nasal Cannula Oxygen Flow Rate (L/min) 5 6 2 Pulse Oximetry (90-100 %) 87 L 90 90 Pulse Rate (60-100 beats/min) 96 99 79 Activity Tolerance Good Treatment Charges
--- NOTE | 2021-02-24 10:09 | PCRCNOTE ---
HOME O2 EVAL COMPLETE, 2 LITERS AT REST AND 6 LITERS WITH ACTIVITY. SET UP WITH [facility]. PHONE NUMBER [phone]. TANK HAS BEEN DELIVERED TO PT'S ROOM FOR DISCHARGE.
--- NOTE | 2021-02-24 12:55 | PM.DS ---
DS: Admitting Diagnosis Admitting Diagnosis Admitting Diagnosis: Worsening shortness of breath DS: Discharge Diagnosis Discharge Diagnosis (1) Pneumonia due to 2019-nCoV: Code(s): U07.1 - COVID-19; J12.82 - Pneumonia due to coronavirus disease 2019 Status: Acute Assessment and Plan: sp Remdesivir, on Dexamethasone, BC was negative. Cxr shows BL infiltrates. Pt was in icu initially then moved to the floor. Advised pt to use medrol dose pack and inhalers at home. 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 Pt discharged- on oxygen at home. (2) Type 2 myocardial infarction: Code(s): I21.A1 - Myocardial infarction type 2 Status: Acute Assessment and Plan: No significant EKG changes (3) Elevated troponin: Code(s): R77.8 - Other specified abnormalities of plasma proteins Status: Acute Assessment and Plan: Known [place] troponin elevation No ischemic myocardial injury (4) Sepsis: Code(s): A41.9 - Sepsis, unspecified organism Status: Acute Assessment and Plan: Resolved (5) Acute respiratory failure due to COVID-19: Code(s): U07.1 - COVID-19; J96.00 - Acute respiratory failure, unspecified whether with hypoxia or hypercapnia Status: Acute Assessment and Plan: Plan to dischrage today on 3 liters of oxygen at rest and 6 liters of oxygen on ambulation DS: Summary Hospital Course Hospital Course: 55-year-old male with no significant past medical history, obesity. Admitted with covid positive pneumonia. Pt is doing better sp dexamethasone and remdesivir. Transferred out of the icu. Pt has recovered some. Pt is now on 2 liters of oxygen. Time Spent with Patient Time attestation: Total time spent providing and/or coordinating discharge services: 40 minutes on day of discharge Exam Narrative: Exam Narrative: Patient on 2 L of oxygen Const: General: comfortable Nutritional Appearance: overweight Resp: Effort & Inspection: normal respiratory effort Neuro: General: patient oriented x3 and CN's II-XI intact bilaterally Cranial nerves: Yes CN's II-XII intact bilaterally and Yes Equal, round and reactive pupils present Cognition (Neuro): normal cognition Speech: normal speech Gait exam (Neuro): Normal gait present Motor exam (neuro): 5/5 motor strength present throughout Extrem: General: normal to inspection, full ROM, no joint enlargement and no pedal edema Discharge Plan Discharge Attending physician on discharge: Nanci Ho Consulting providers: Aman Morelos ; Nunu Yepze Discharging Clinician: Nanci Ho Anticipated Discharge Date/Time: 02/24/21 12:27 Patient Disposition: Home, Self-Care Activity: as tolerated Diet: heart healthy Discharge Instructions: Pt to follow with pulmonology in 2 weeks time Pt may need CT Chest prior to appointment with pulmonology pt is discharged on oxygen 2 liters at rest, 6 liters on ambulation Continue to quarantine for another 7 days Patient Instructions: Antibiotic Form, Shortness of Breath (GEN), COVID-19 (Coronavirus Disease 2019) (DC), COVID-19: Slow the Coronavirus Spread (DC) Stand Alone Forms: General Discharge Information Follow-up/Referrals: Kiana White MD [Physician] - (CTCHEST ORDERED FOR PATIENT ) Robin Coffey MD [Primary Care Provider] - Discharge Medications: New metoprolol tartrate 25 mg Tablet 25 mg PO Q12HR Qty: 60 RF: 0 pantoprazole 40 mg Tablet,Delayed Release (Dr/Ec) 40 mg PO QAM Qty: 60 RF: 0 acetaminophen [Mapap (acetaminophen)] 325 mg Tablet 650 mg PO Q4H PRN (Reason: Mild Pain (1-3) Or Fever) Qty: 30 RF: 0 aspirin 325 mg Tablet 325 mg PO DAILY@0800 Qty: 30 RF: 0 budesonide [Pulmicort] 0.5 mg/2 mL Suspension For Nebulization 0.5 mg inhalation Q12HRT Qty: 1 RF: 0 zinc sulfate 50 mg zinc (220 mg) Capsule 220 mg PO QAM Qty: 30 RF: 0 ascorbi
== END 2021-02-24 14:36 | disposition home or self-care (01) | DRG 871 ==
LOC: ANHED 12:27 → ANHICU 13:31 → ANH3MEDSUR 02-21 14:11 → ANHICU 02-25 14:43
PROVIDERS: Emergency Medicine; Internal Medicine; Admitting Provider Internal Medicine; Emergency Provider Emergency Medicine; PCP Family Medicine; Visit Provider Family Medicine
DX: A41.89 Other specified sepsis (principal); U07.1 COVID-19; J12.82 Pneumonia due to coronavirus disease 2019; I21.A1 Myocardial infarction type 2; J96.01 Acute respiratory failure with hypoxia; Z68.41 Body mass index [BMI] 40.0-44.9, adult; E66.9 Obesity, unspecified; R77.8 Other specified abnormalities of plasma proteins
CPT/HCPCS: 36415; 36600; 71045; 80048; 80053; 82728; 82805; 82948; 83605; 83615; 83735; 83880; 84460; 84484; 85025; 85027; 85380; 86140; 87040; 93005; 93306; 94002; 94003; 94618; 94640; 96374; 97110; 97116; 97161; 97165; 99285; A9270; C9113; J0360; J0696; J1100; J1650; J7030

== ENCOUNTER 2021-03-11 14:55 | Outpatient (CLI) | payer BC, SELFPAY ==
--- NOTE | ~2021-03-11 | CT_ITS ---
EXAMINATION:CT diagnostic chest wo con DATE: 03/11/2021 15:46 INDICATION: Respiratory failure. COVID-19 pneumonia. TECHNIQUE: Computed tomography (CT) of the chest was performed without intravenous contrast. Automate d exposure control and iterative reconstruction technique were employed. The dose-length product (DLP ) was 478.38 mGy-cm. COMPARISON: Chest single view 02/24/2021 FINDINGS: The lung volumes are decreased. There are airspace and groundglass opacities and septal thi ckening involving all lung segments with architectural distortion. No bronchiectasis or honeycombing. No pleural effusion. The heart size is normal. No pericardial effusion. There is mild thoracic spond ylosis. IMPRESSION: 1. Diffuse lung disease, consistent with COVID-19 pneumonia. Reviewed, dictated and finalized at location A.
[2021-03-11 15:17] LABS: Basophils Absolute Auto 0.1 K/mm3 (0.0-0.1); Basophils Percent Auto 0.6 % (0.2-1.2); Eosinophils Absolute Auto 0.4 K/mm3 (0-0.3); Eosinophils Percent Auto 4.9 % (0-4.4); Hematocrit 44.5 % (42.0-52.0); Hemoglobin 14.4 g/dL (14.0-18.0); Immature Granulocyte Absolute 0.07 K/mm3 (0.00-0.031); Immature Granulocyte Percent A 0.9 % (0-0.5); Lymphocytes Absolute Auto 2.43 K/mm3 (0.9-3.2); Lymphocytes Percent Auto 30.5 % (18.3-44.2); Mean Corpuscular HGB Conc 32.4 g/dl (32-36); Mean Corpuscular Hemoglobin 29.5 pg (26-34); Mean Corpuscular Volume 91.2 fl (80-100); Mean Platelet Volume 9.1 fl (7.4-10.4); Monocytes Percent Auto 12.2 % (2.6-8.5); Neutrophils Absolute Auto 4.1 K/mm3 (1.3-6.7); Neutrophils Percent Auto 50.9 % (45.5-73.1); Platelet Count Result 180 k/mm3 (150-375); Red Blood Count 4.88 M/mm3 (4.6-6.20); Red Cell Distribution Width 13.1 % (11.5-14.5)
== END 2021-03-11 14:56 | disposition home or self-care (01) ==
LOC: ANHIMG 14:57
PROVIDERS: PCP Family Medicine; Visit Provider Nurse Practitioner Family
DX: D72.829 Elevated white blood cell count, unspecified (principal); J96.00 Acute respiratory failure, unspecified whether with hypoxia or hypercapnia; U07.1 COVID-19; R91.8 Other nonspecific abnormal finding of lung field
CPT/HCPCS: 36415; 71250; 85025

== ENCOUNTER 2023-02-01 11:33 | Outpatient (CLI) | payer BC, SELFPAY ==
[2023-02-01 12:09] LABS: Hemoglobin 14.9 g/dL (14.0-18.0); Mean Corpuscular HGB Conc 33.1 g/dl (32-36); Mean Corpuscular Hemoglobin 29.6 pg (26-34); Mean Corpuscular Volume 89.3 fl (80-100); Mean Platelet Volume 10.5 fl (7.4-10.4); Platelet Count Result 260 k/mm3 (150-375); Red Blood Count 5.04 M/mm3 (4.6-6.20); Red Cell Distribution Width 12.6 % (11.5-14.5); White Blood Count 7.1 K/mm3 (4.5-10.0)
[2023-02-01 12:20] LABS: Alanine Aminotransferase 61 U/L (6-50); Albumin Level 4.6 g/dL (3.5-5.1); Alkaline Phosphatase 57 U/L (38-126); Anion Gap 10 mmol/L (8-16); Aspartate Amino Transferase 46 U/L (17-59); Bilirubin,Total 0.9 mg/dL (0.2-1.3); Blood Urea Nitrogen 18 mg/dL (9-20); Calcium 9.1 mg/dL (8.4-10.2); Carbon Dioxide 27 mmol/L (22-30); Chloride 100 mmol/L (98-107); Cholesterol 215 mg/dL (0-200); Estimated Glomerular Filt Rate > 60; Glucose 175 mg/dL (65-110); HDL Direct 38 mg/dL; Potassium 4.5 mmol/L (3.4-5.0); Sodium 137 mmol/L (137-145); Triglycerides 353 mg/dL (<150)
[2023-02-01 12:31] LABS: LDL Cholesterol Direct 110 mg/dL
[2023-02-01 12:50] LABS: Prostate Specific Antigen 0.5 ng/mL (< OR = 4.0)
== END 2023-02-01 11:34 | disposition home or self-care (01) ==
LOC: ANHLAB 11:35
PROVIDERS: PCP Family Medicine; Visit Provider Nurse Practitioner Family
DX: I10 Essential (primary) hypertension (principal); Z12.5 Encounter for screening for malignant neoplasm of prostate
CPT/HCPCS: 36415; 80053; 80061; 84153; 84443; 85027; G0103